=== PATIENT | female | born 1975 | race African-American/Black ===

== ENCOUNTER 2024-04-21 12:43 | Inpatient (IN) | payer MEDICAID, OTHER ==
[~2024-04-21] VITALS: Ht 157.5 cm; Wt 97.2 kg
--- NOTE | 2024-04-21 13:04 | ED.PDOC ---
GI ASSESSMENT HPI Comments 48Y F with PMHx pancreatitis and HTN presents to ED for chief complaint RUQ pain x1day that radiates to rt flank region. Additional symptoms include nausea and vomiting (last episode this morning). Pt has normal bowel movements. Pt denies being . Pt smokes cigarettes and drinks alcohol. Last alcoholic drink was last night. Pt is currently experiencing grief as son on 04/15/2024. Pt denies illicit drug use. Chief Complaint: Abdominal Pain Time Seen by MD: 12:51 Reviewed Notes: Medications, Allergies Allergies: Uncoded Allergies: HCTZ (Allergy, Unknown, 04/21/24) HYDROCHLOROTHYAZIDE Information Source: Patient Mode of Arrival: Ambulatory Timing: Days Duration: Since onset Quality: Sharp Vomitus: Watery Stool: Brown Severity: Mild Recent: None Recent Hx of: None Pain Location: RUQ, Other (rt flank) Modifying Factors: Nothing Associated sign and symptoms: Nausea, Vomiting, Abdominal Pain Past Medical History PAST MEDICAL HISTORY: HTN Past Medical History (Other): Pancreatitis Surgical History: Denies all surgeries FLAME GOUGER History: Denies all FLAME GOUGER Hx Family History Family History: Unknown Social History Smoker: Cigarettes Alcohol: Occasionally Drugs: Denies Drug Use Lives In: Home Constitutional: denies: chills, diaphoresis, fatigue, fever, malaise, sweats, weakness, others EENTM: denies: blurred vision, double vision, ear bleeding, ear discharge, ear drainage, ear pain, ear ringing, eye pain, eye redness, hearing loss, mouth pain, mouth swelling, nasal discharge, nose bleeding, nose congestion, nose pain, photophobia, tearing, throat pain, throat swelling, voice changes, others Respiratory: denies: cough, hemoptysis, orthopnea, SOB at rest, shortness of breath, SOB with excertion, stridor, wheezing, others Cardiovascular: denies: chest pain, dizzy spells, diaphoresis, Dyspnea on exertion, edema, irregular heart beat, left arm pain, lightheadedness, palpitations, PND, syncope, others Gastrointestinal: reports: abdominal pain, nausea, vomiting; denies: abdomen distended, blood streaked bowels, constipated, diarrhea, dysphagia, difficulty swallowing, hematemesis, melena, poor appetite, poor fluid intake, rectal bleeding, rectal pain, others Genitourinary: reports: flank pain; denies: abnormal vagina bleeding, burning, dyspareunia, dysuria, frequency, hematuria, incontinence, pain, , vagina discharge, urgency, others Neurological: denies: dizziness, fainting, headache, left sided numbness, left sided weakness, numbness, paresthesia, pre-existing deficit, right sided numbness, right sided weakness, seizure, speech problems, tingling, tremors, weakness, others Musculoskeletal: denies: back pain, gout, joint pain, joint swelling, muscle pain, muscle stiffness, neck pain, others Integumetry: denies: bruises, change in color, change in hair/nails, dryness, laceration, lesions, lumps, rash, wounds, others Allergic/Immunocompromised: denies: Difficulty Healing, Frequent Infections, Hives, Itching, others Hematologic/Lymphatic: denies: anemia, blood clots, easy bleeding, easy bruising, swollen glands, others Endocrine: denies: excessive hunger, excessive sweating, excessive thirst, excessive urination, flushing, intolerance to cold, intolerance to heat, unexplained weight gain, unexplained weight loss, others Psychiatric: reports: others (grief); denies: anxiety, bipolar disorder, depression, hopeless, panic disorder, schizophrenia, sleepless, suicidal All Other Systems: Reviewed and Negative Physical Exam General Appearance: Mild Distress HEENT: Normal ENT Inspection, Pharynx Normal, TMs Normal Neck: Full Range of Motion, Non-Tender, Normal, Normal Inspection Respiratory: Chest Non-Tender, Lungs Clear, No Accessory Muscle Use, No Respiratory Distress, Normal Breath Sounds Cardiovascular: No Edema, No JVD, No Murmur, No Gallop, Normal Peripheral Pulses, Regular Rate/Rhythm Breast Exam: Deferred Gastrointestinal: No Organomegaly, Non Tender, No Pulsatile Mass, Normal Bowel Sounds, Soft Genitalia: Deferred Pelvic: Deferred Rectal: Deferred Extremities: No calf tenderness, Normal capillary refill, Normal inspection, Normal range of motion, Non-tender, No pedal edema Musculoskeletal : Apperance: Normal Neurologic: Alert, staff development coordinator rn II-XII nml as Tested, No Motor Deficits, Normal Affect, Normal Mood, No Sensory Deficits Cerebellar Function: Normal Reflexes: Normal Skin: Dry, Normal Color, Warm Lymphatic: No Adenopathy Was a procedure done? Was a procedure done?: No GI differential Dx Differential Diagnosis: Complete , Incomplete , Inevitable , Missed , Threatened , Abruptio placentae, Bowel O bstruction, Cholangitis, Cholecystitis, Constipation, Diverticular disease, Ectopic , Gastritis/PUD, Gastroenteritis, Hernia, Hepatitis, Inflammatory BD, Ischemic Bowel, Pancreatitis, Urinary Obstruction, UTI, Urolithiasis, Dehydration, Diabetes/ DKA, Electrolyte Imbalance, Food Poisoning, , Bacterial, Parasitic, Viral, Hypovolemia, Impaction, Malnutrition, Renal Failure, Ischemic Bowel, Mass, Anemia, Stress Ulcer, Kidney Stone X-Ray, Labs, Meds, VS Vital Signs Date Time Temp Pulse Resp B/P (MAP) Pulse Ox O2 Delivery O2 Flow Rate FiO2 04/21/24 15:07 81 19 144/89 04/21/24 14:39 76 17 149/86 04/21/24 14:00 98.1 73 19 131/72 (91) 97 98.1 04/21/24 14:00 73 19 100 Room Air* 0 21 04/21/24 13:39 117/83 04/21/24 12:55 98.5 85 18 138/87 (104) 95 Lab Test 04/21/24 13:40 04/21/24 12:50 Range/Units Sodium Level 141 136-145 mmol/L Potassium Level 3.3 L 3.5-5.1 mmol/L Chloride Level 108 H 98-107 mmol/L Carbon Dioxide Level 26 20-31 mmol/L Anion Gap 7 5-15 Blood Urea Nitrogen 6 L 9-23 mg/dL Creatinine 0.58 0.550-1.02 mg/dL Glomerular Filtration Rate Calc 112 >90 mL/min BUN/Creatinine Ratio 10.3 10.0-20.0 Serum Glucose 95 74-106 mg/dL Calcium Level 9.2 8.7-10.4 mg/dL Total Bilirubin 1.1 H 0.2-1.0 mg/dL Aspartate Amino Transferase (AST) 58 H 13-40 U/L Alanine Aminotransferase (ALT) 56 H 7-40 U/L Alkaline Phosphatase 136 H 46-116 U/L Total Protein 6.4 5.7-8.2 g/dL Albumin 4.1 3.2-4.8 g/dL Lipase 364 H 12-53 U/L Beta HCG, Quantitative < 1.5 L 1.5-4.2 mIU/mL Urine Color Yellow Yellow Urine Clarity Clear Clear Urine pH 6.5 5.0-9.0 Urine Specific [place] 1.014 1.001-1.035 Urine Protein Negative Negative Urine Ketones 2+ H Negative Urine Blood 2+ H Negative /uL Urine Nitrite Negative Negative Urine Bilirubin Negative Negative Urine Urobilinogen 3 H Negative mg/dL Urine Leukocyte Esterase Negative Negative /uL Urine RBC 25 0 - 4 /hpf Urine WBC 1 0 - 5 /hpf Urine Squamous Epithelial Cells Few <5 /hpf Urine Bacteria None seen None Seen /hpf Urine Mucus Few None Seen Urine Glucose Normal Normal mg/dL Current Medications Medications (Trade) Dose Ordered Sig/Jose Route Start Time Stop Time Status Last Admin Fentanyl Citrate 25 mcg ONCE ONCE IV 04/21/24 13:30 04/21/24 13:31 DC 04/21/24 13:39 Morphine Sulfate 2 mg ONCE ONCE IV 04/21/24 14:30 04/21/24 14:31 DC 04/21/24 14:39 Ondansetron HCl (Zofran) 4 mg ONCE ONCE IV 04/21/24 14:30 04/21/24 14:31 DC 04/21/24 14:38 [place] [id number] Ph: [phone] DIAGNOSTIC IMAGING Diagnostic Imaging Report : [id number] Signed PATIENT: KAYLA ROSALES ACCT: [id number] UNIT: [id number] : 1975 LOC: ER ROOM / BED: / AGE / SEX: 48 / F ADM STATUS: REG ER SERVICE 1259 ORDERING PHYSICIAN: LUIS SOL MD PROCEDURE(s): GBUS - GALLBLADDER REASON: ruq pain ORDER NUMBER(s): [id number], ACCESSION NUMBER(s): [id number] INDICATION: Pain. TECHNIQUE: Multiple real-time sonographic images of the abdomen were obtained. COMPARISON: None FINDINGS: The liver is increased in echogenicity. The liver measures 16.2 cm. No intrahepatic biliary ductal dilatation is noted. Hepatopetal flow in the main portal vein. The gallbladder wall measures 0.2 cm and is unremarkable. No gallstones or sludge is seen. The common duct measures 1.2 cm and is unremarkable. No pericholecystic fluid is noted. Negative sonographic castaneda's sign. The right kidney measures 10.9 cm. No hydronephrosis. 0.7 cm nonobstructing stone in the interpolar right kidney. The pancreas is not well visualized due to obscuration from bowel gas. The visualized portions of the IVC and aorta are grossly unremarkable. IMPRESSION: 1. Dilated common bile duct measuring 1.2 cm in diameter without filling defect. Gallbladder is unremarkable. MRCP may be obtained for further evaluation to assess for choledocholithiasis. 2. Nonobstructing right intrarenal calculus. ATED BY: LAURA SPNECE MD DICTATED DATE/TIME: 04/21/24 1345 SIGNED BY: LAURA SPENCE MD SIGNED DATE/TIME: 04/21/24 1345 CC: Time of 1ST Reevaluation: 13:21 Reevaluation 1ST: Unchanged Time of 2ND Reevaluation: 15:31 Reevaluation 2ND: Improved Patient Education/Counseling: Diagnosis, Treatment Family Education/Counseling: Diagnosis, Treatment Additional Information pt has evidence of biliary obstruction with mild pancreatic inflammation. pt may be transferred to [place] for ERCP. however, [facility] does not have beds, and requests to try contacting them tomorrow. pt will be admitted here for now Departure 1 Departure Time of Disposition: 15:31 Impression: Primary Impression: Biliary obstruction Additional Impression: Pancreatitis Qualified Codes: K85.10 - Biliary acute pancreatitis without necrosis or infection Disposition: 09 ADMITTED INPATIENT Condition: Stable Critical Care Note Critical Care Time?: Yes (55 min-critical care time only) Critical care comment: due to real concerns for pt's condition deteriorating, the patient's care required my highest level of attention and prepareness to intervene. i assessed this patient, formulated a plan of care, communicated with medical personnel,reveiwed data and results,and conversed with cruise consultant, reassessed the patient's condition and response to treatments. total time include at least 50% face-face interactions and does not include any procedures Stability Stability form required: No I personally scribed for LUIS SOL MD ([email or web address]) on 04/21/24 at 13:04. Electronically submitted by Racquel Forman ([email or web address]). I personally scribed for LUIS SOL MD ([email or web address]) on 04/21/24 at 14:04. Electronically submitted by Racquel Forman ([email or web address]). LUIS SOL MD Apr 21, 2024 13:04
[2024-04-21 13:13] LABS: Urine Bacteria None Seen /hpf (None Seen)
[2024-04-21] MEDS ORDERED: fentaNYL CITRATE 100 MCG/2 ML VL IM ONE (13:15)
[2024-04-21] MEDS: HYDROcodone-ACET 5/325MG TAB PO ONE (13:17)
[2024-04-21 13:21] LABS: Urine Blood 2+ /uL (Negative); Urine Clarity Clear (Clear); Urine Color Yellow (Yellow); Urine Mucus FEW (None Seen); Urine Protein, UAD Negative (Negative); Urine Specific Gravity 1.014 (1.001-1.035); Urine Urobilinogen 3 mg/dL (Negative); Urine WBC 1 /hpf (0 - 5); Urine pH 6.5 (5.0-9.0)
[2024-04-21] MEDS: fentaNYL CITRATE 100 MCG/2 ML VL IV ONE (13:39)
--- NOTE | 2024-04-21 13:48 | DVH ---
INDICATION: Pain. TECHNIQUE: Multiple real-time sonographic images of the abdomen were obtained. COMPARISON: None FINDINGS: The liver is increased in echogenicity. The liver measures 16.2 cm. No intrahepatic biliar y ductal dilatation is noted. Hepatopetal flow in the main portal vein. The gallbladder wall measures 0.2 cm and is unremarkable. No gallstones or sludge is seen. The com mon duct measures 1.2 cm and is unremarkable. No pericholecystic fluid is noted. Negative sonographi c castaneda's sign. The right kidney measures 10.9 cm. No hydronephrosis. 0.7 cm nonobstructing stone in the interpolar right kidney. The pancreas is not well visualized due to obscuration from bowel gas. The visualized portions of the IVC and aorta are grossly unremarkable. IMPRESSION: 1. Dilated common bile duct measuring 1.2 cm in diameter without filling defect. Gallbladder is unre markable. MRCP may be obtained for further evaluation to assess for choledocholithiasis. 2. Nonobstructing right intrarenal calculus.
[2024-04-21 14:00] VITALS: PULSE 73; RESP 19; O2SAT 100
[2024-04-21 14:27] LABS: Alanine Aminotransferase 56 U/L (7-40); Albumin 4.1 g/dL (3.2-4.8); Alkaline Phosphatase 136 U/L (46-116); Anion Gap 7 (5-15); Aspartate Aminotransferase 58 U/L (13-40); BUN/Creatinine Ratio 10.3 (10.0-20.0); Blood Urea Nitrogen 6 mg/dL (9-23); Calcium 9.2 mg/dL (8.7-10.4); Carbon Dioxide 26 mmol/L (20-31); Chloride 108 mmol/L (98-107); Glucose 95 mg/dL (74-106); Lipase 364 U/L (12-53); Potassium 3.3 mmol/L (3.5-5.1); Sodium 141 mmol/L (136-145)
[2024-04-21 14:28] LABS: Bilirubin, Total 1.1 mg/dL (0.2-1.0); Total Protein 6.4 g/dL (5.7-8.2)
[2024-04-21] MEDS: ONDANSETRON HCL 4 MG/2 ML VIAL IV ONE ×2 (14:38→21:17)
[2024-04-21] MEDS: MORPHINE SULFATE INJ 2 MG/ml SYRG IV ONE (14:39)
[2024-04-21] MEDS: POTASSIUM CHL 20MEQ/100ML 100 ML IV ONE (16:10)
[2024-04-21] MEDS: HYDROmorphone HCL 2 MG/ML VL/or syr IV ONE (17:21)
[2024-04-21 20:01] VITALS: PULSE 81; RESP 16; O2SAT 100
[2024-04-21] MEDS: ONDANSETRON HCL 4 MG/2 ML VIAL ONE (21:16)
[2024-04-21] MEDS: MORPHINE SULFATE 4 MG/ML SYR/VIAL IV ONE (21:18)
--- NOTE | 2024-04-21 21:42 | DVHHP2 ---
Review of Systems Constitutional: No symptom reported Ears, Nose, & Throat: No symptom reported Eyes: No symptom reported Pulmonary/Respiratory: No symptom reported Cardiovascular: No symptom reported Gastrointestinal: No symptom reported Genitourinary: No symptom reported Musculoskeletal: No symptom reported Skin: No symptom reported Psychiatric: No symptom reported Endocrine: No symptom reported Hemotologic/Lymphatic: No symptom reported H&P Exam Vital Signs Vital Signs Date Time Temp Pulse Resp B/P (MAP) Pulse Ox O2 Delivery O2 Flow Rate FiO2 04/21/24 21:18 72 18 126/66 04/21/24 20:01 100 Room Air* 0 21 04/21/24 14:00 98.1 98.1 General Appeara: Well developed, Well nourished, Normal Appearance Head Exam: Normal inspection Neck Exam: Normal inspection, Non-tender, Normal alignment Eye Exam: bilateral eye Normal inspection, bilateral eye PERRL, bilateral eye EOMI Ear Exam: bilateral ear Auricle normal, bilateral ear Canal normal, bilateral ear TM normal Nasal Exam: Normal inspection Mouth: Normal Inspection Pulmonary/Respiratory: Normal inspection, Normal breath sounds, Chest non- tender, Lungs clear Cardiovascular/Chest: Normal inspection, Regular rate, Normal Rhythm Abdominal Exam: Normal bowel sounds, Soft, No tenderness, No hepatospenomegaly, No masses Rectal Exam: Normal inspection Back Exam: Normal inspection Pelvic Exam: External exam normal, Bimanual exam normal, Speculum exam normal Male Genital Exam: Normal genitalia, Normal prostate Shoulder Exam: Normal inspection, Non-tender, Normal ROM Elbow/Forearm Exam: Normal inspection, Non-tender, Normal ROM Wrist Exam: Normal inspection, Non-tender, Normal ROM Hand Exam: Normal inspection, Non-tender, Normal ROM Hip exam: Normal inspection, Non-tender, Normal range of motion Legs: bilateral leg non-tender, bilateral leg normal inspection, bilateral leg normal range of motion, bilateral leg no evidence of injury Knees: bilateral knee non-tender, bilateral knee normal inspection, bilateral knee normal range of motion, bilateral knee no evidence of injury Ankle Exam: bilateral ankle Normal inspection, bilateral ankle Non-tender, bilateral ankle Normal range of motion, bilateral ankle No evidence of injury Foot: bilateral foot non-tender, bilateral foot normal inspection, bilateral foot normal range of motion, bilateral foot no evidence of injury Tendon/ Neuro: Normal sensation, Normal motor function, Normal tendon functions RECREATION THERAPY DIRECTOR Exam: Normal hearing, Normal speech, PERRL Motor/Sensory: Normal sensory function, Normal motor function, Negative Babinski's sign Deep Tendon Ref: All intact Neuro/Mental St: Alert, Oriented Appearance: Appropriate appearance, Appropriate insight Eye contact/ Speech: Cooperative, Good eye contact, Normal speech Coordination/Gait: Normal finger->nose, Normal gait, Negative Romberg's sign Skin Exam: Normal inspection, Normal color, Warm/dry Lymphatic: Normal inspection Labs/Xrays Labs Test 04/21/24 13:40 04/21/24 12:50 Range/Units Sodium Level 141 136-145 mmol/L Potassium Level 3.3 L 3.5-5.1 mmol/L Chloride Level 108 H 98-107 mmol/L Carbon Dioxide Level 26 20-31 mmol/L Anion Gap 7 5-15 Blood Urea Nitrogen 6 L 9-23 mg/dL Creatinine 0.58 0.550-1.02 mg/dL Glomerular Filtration Rate Calc 112 >90 mL/min BUN/Creatinine Ratio 10.3 10.0-20.0 Serum Glucose 95 74-106 mg/dL Calcium Level 9.2 8.7-10.4 mg/dL Total Bilirubin 1.1 H 0.2-1.0 mg/dL Aspartate Amino Transferase (AST) 58 H 13-40 U/L Alanine Aminotransferase (ALT) 56 H 7-40 U/L Alkaline Phosphatase 136 H 46-116 U/L Total Protein 6.4 5.7-8.2 g/dL Albumin 4.1 3.2-4.8 g/dL Lipase 364 H 12-53 U/L Beta HCG, Quantitative < 1.5 L 1.5-4.2 mIU/mL Urine Color Yellow Yellow Urine Clarity Clear Clear Urine pH 6.5 5.0-9.0 Urine Specific [place] 1.014 1.001-1.035 Urine Protein Negative Negative Urine Ketones 2+ H Negative Urine Blood 2+ H Negative /uL Urine Nitrite Negative Negative Urine Bilirubin Negative Negative Urine Urobilinogen 3 H Negative mg/dL Urine Leukocyte Esterase Negative Negative /uL Urine RBC 25 0 - 4 /hpf Urine WBC 1 0 - 5 /hpf Urine Squamous Epithelial Cells Few <5 /hpf Urine Bacteria None seen None Seen /hpf Urine Mucus Few None Seen Urine Glucose Normal Normal mg/dL Assessment/Plan Problem List: (1) Pancreatitis (2) Biliary obstruction Plan 48 years old female comes into the hospital with complaint of right upper quadrant abdominal pain, during initial evaluation patient found to have increased lipase, increased transaminitis, patient is going to be admitted to hospital for acute pancreatitis, will keep patient n.p.o., IV fluids, IV normal saline, patient found to be hypokalemic patient's potassium will be replaced, also patient had finding of nonobstructive kidney stone Plan discussed with: Patient KURT CONTRERAS MD Apr 21, 2024 21:42
[2024-04-21] MEDS ORDERED: NITROGLYCERIN 0.4 MG SL TAB SL PRN (21:45)
[2024-04-21] MEDS ORDERED: ONDANSETRON HCL 4 MG/2 ML VIAL IV PRN (21:45)
[2024-04-21] MEDS ORDERED: MORPHINE SULFATE INJ 2 MG/ml SYRG IV PRN ×2 (21:45)
[2024-04-21] MEDS: SODIUM CHLORIDE 0.9% 1,000 ML IV SCH (21:45)
[2024-04-21] MEDS: POTASSIUM CHL 20MEQ/100ML 100 ML IV SCH (21:45)
[2024-04-22] VITALS (7 sets, daily range): BP systolic 108–145; BP diastolic 64–84; PULSE 60–84; RESP 16–20; TEMP 97.6–98.5; O2SAT 97–100
[2024-04-22 00:09] LABS: Eosinophils # (auto) 0.1 10 ^3/uL (0-0.8); Mean Corpuscular Volume 75.4 fL (80.0-100.0); Monocytes # (auto) 0.5 10 ^3/uL (0-1.3); Monocytes % (auto) 5.8 % (0.0-12.0); Nucleated Red Blood Cells % 0.1 %; White Blood Cell 7.8 10^3/uL (4.4-10.8)
[2024-04-22 00:10] LABS: Basophils # (auto) 0 10 ^3/uL (0-0.2); Basophils % (auto) 0.6 % (0.0-2.0); Eosinophils % (auto) 1.3 % (0.0-7.0); Hematocrit 32.7 % (36.0-46.0); Hemoglobin 10.3 g/dL (12.2-16.2); Lymphocytes # (auto) 1.3 10 ^3/uL (0.4-5.4); Lymphocytes % (auto) 16.5 % (10.0-50.0); Mean Corpuscular Hemoglobin 23.8 pg (28.0-32.0); Mean Corpuscular Hgb Conc. 31.5 g/dL (32.0-36.0); Neutrophils # (auto) 5.9 10 ^3/uL (1.6-8.6); Neutrophils % (auto) 75.8 % (37.0-80.0); Platelet Count (auto) 340 10^3/uL (140-450); Red Blood Cells 4.34 10^6/uL (4.0-5.20); Red Cell Distribution Width 19.1 % (11.8-14.3)
[2024-04-22 03:52] LABS: Basophils # (auto) 0 10 ^3/uL (0-0.2); Basophils % (auto) 0.3 % (0.0-2.0); Eosinophils # (auto) 0.1 10 ^3/uL (0-0.8); Lymphocytes # (auto) 1.1 10 ^3/uL (0.4-5.4); Monocytes # (auto) 0.6 10 ^3/uL (0-1.3)
[2024-04-22 03:56] LABS: Eosinophils % (auto) 1.4 % (0.0-7.0); Hematocrit 33.6 % (36.0-46.0); Hemoglobin 10.6 g/dL (12.2-16.2); Lymphocytes % (auto) 12.6 % (10.0-50.0); Mean Corpuscular Hgb Conc. 31.6 g/dL (32.0-36.0); Mean Corpuscular Volume 76.1 fL (80.0-100.0); Monocytes % (auto) 6.7 % (0.0-12.0); Neutrophils # (auto) 6.8 10 ^3/uL (1.6-8.6); Nucleated Red Blood Cells % 0.1 %; Platelet Count (auto) 316 10^3/uL (140-450); Red Blood Cells 4.42 10^6/uL (4.0-5.20); Red Cell Distribution Width 19.2 % (11.8-14.3); White Blood Cell 8.6 10^3/uL (4.4-10.8)
[2024-04-22 04:12] LABS: Alanine Aminotransferase 48 U/L (7-40); Albumin 4.2 g/dL (3.2-4.8); Alkaline Phosphatase 130 U/L (46-116); Anion Gap 6 (5-15); Aspartate Aminotransferase 39 U/L (13-40); Bilirubin, Total 1.1 mg/dL (0.2-1.0); Calcium 9.2 mg/dL (8.7-10.4); Carbon Dioxide 25 mmol/L (20-31); Chloride 109 mmol/L (98-107); Glucose 91 mg/dL (74-106); Potassium 3.4 mmol/L (3.5-5.1); Sodium 140 mmol/L (136-145); Total Protein 6.8 g/dL (5.7-8.2)
[2024-04-22] MEDS: MORPHINE SULFATE INJ 2 MG/ml SYRG IV PRN (04:20)
[2024-04-22] MEDS: SODIUM CHLORIDE 0.9% 1,000 ML IV SCH (04:20)
[2024-04-22] MEDS: ONDANSETRON HCL 4 MG/2 ML VIAL IV PRN (04:20)
[2024-04-22 04:27] LABS: BUN/Creatinine Ratio 9.1 (10.0-20.0); Blood Urea Nitrogen < 5 mg/dL (9-23)
--- NOTE | 2024-04-22 06:28 | DVHHP2 ---
History of Present Illness Reason for Visit: Abdominal pain History of Present Illness 48-year-old female presents for evaluation of abdominal pain. Patient endorses a two day history of sharp right upper quadrant abdominal pain that radiates to her back. She associates episodes of nausea with vomiting. Denies diarrhea, fever or chills. No cardiac or respiratory complaints. Past Medical History Hypertension , pancreatitis Past Surgical History Denies Family History Noncontributory Smoke: <1 pack per day ALCOHOL: occassional Drugs: None Lives: with Family Review of Systems Review of Systems Review of systems are currently negative otherwise addressed in HPI. Allergies: Uncoded Allergies: HCTZ (Allergy, Unknown, 04/21/24) HYDROCHLOROTHYAZIDE Medications Current Medications Medications Dose Ordered Sig/Jose Route Start Time Stop Time Status Last Admin Dose Admin Sodium Chloride 1,000 ml @ 100 mls/hr Q10H IV 04/22/24 04:15 04/22/24 04:20 100 MLS/HR Ondansetron HCl 4 mg Q4HP PRN IV 04/22/24 04:15 04/22/24 04:20 4 MG Morphine Sulfate 2 mg Q4HPRN PRN IV 04/22/24 04:15 04/22/24 04:20 2 MG Exam Vital Signs Vital Signs Date Time Temp Pulse Resp B/P (MAP) Pulse Ox O2 Delivery O2 Flow Rate FiO2 04/22/24 04:59 60 16 137/68 04/22/24 04:00 98 04/21/24 20:01 Room Air* 0 21 04/21/24 14:00 98.1 98.1 Exam Gen: 48-year-old female in mild distress Skin: Warm, dry, normal color and texture, no rash. HEENT: Normocephalic atraumatic, mucous membranes moist and pink. Neck: Cervical and supraclavicular nodes normal without enlargement, trachea is midline, thyroid gland is normal without masses. Pulmonary: Clear to auscultation and percussion bilaterally. Cardiac: Regular rate and rhythm. No murmur Abdomen: Soft, right upper quadrant tenderness, nondistended, bowel sounds present all 4 quadrants, no guarding, no rigidity, no organomegaly. Extremities: No cyanosis, clubbing, no edema Neuro: Cranial nerves II through XII grossly intact, normal affect and speech, no focal motor deficits. Labs/Xrays ORDERING PHYSICIAN: LUIS SOL MD PROCEDURE(s): GBUS - GALLBLADDER REASON: ruq pain ORDER NUMBER(s): [id number], ACCESSION NUMBER(s): [id number] INDICATION: Pain. TECHNIQUE: Multiple real-time sonographic images of the abdomen were obtained. COMPARISON: None FINDINGS: The liver is increased in echogenicity. The liver measures 16.2 cm. No intrahepatic biliary ductal dilatation is noted. Hepatopetal flow in the main portal vein. The gallbladder wall measures 0.2 cm and is unremarkable. No gallstones or sludge is seen. The common duct measures 1.2 cm and is unremarkable. No pericholecystic fluid is noted. Negative sonographic castaneda's sign. The right kidney measures 10.9 cm. No hydronephrosis. 0.7 cm nonobstructing stone in the interpolar right kidney. The pancreas is not well visualized due to obscuration from bowel gas. The visualized portions of the IVC and aorta are grossly unremarkable. IMPRESSION: 1. Dilated common bile duct measuring 1.2 cm in diameter without filling defect. Gallbladder is unremarkable. MRCP may be obtained for further evaluation to assess for choledocholithiasis. 2. Nonobstructing right intrarenal calculus. Labs Test 04/22/24 03:44 04/21/24 13:40 04/21/24 12:50 Range/Units White Blood Count 8.6 4.4-10.8 10^3/uL Red Blood Count 4.42 4.0-5.20 10^6/uL Hemoglobin 10.6 L 12.2-16.2 g/dL Hematocrit 33.6 L 36.0-46.0 % Mean Corpuscular Volume 76.1 L 80.0-100.0 fL Mean Corpuscular Hemoglobin 24.0 L 28.0-32.0 pg Mean Corpuscular Hemoglobin Concent 31.6 L 32.0-36.0 g/dL Red Cell Distribution Width 19.2 H 11.8-14.3 % Platelet Count 316 140-450 10^3/uL Mean Platelet Volume 6.7 L 6.9-10.8 fL Neutrophils (%) (Auto) 79.0 37.0-80.0 % Lymphocytes (%) (Auto) 12.6 10.0-50.0 % Monocytes (%) (Auto) 6.7 0.0-12.0 % Eosinophils (%) (Auto) 1.4 0.0-7.0 % Basophils (%) (Auto) 0.3 0.0-2.0 % Neutrophils # (Auto) 6.8 1.6-8.6 10 ^3/uL Lymphocytes # (Auto) 1.1 0.4-5.4 10 ^3/uL Monocytes # (Auto) 0.6 0-1.3 10 ^3/uL Eosinophils # (Auto) 0.1 0-0.8 10 ^3/uL Basophils # (Auto) 0 0-0.2 10 ^3/uL Nucleated Red Blood Cells 0.1 % Sodium Level 140 136-145 mmol/L Potassium Level 3.4 L 3.5-5.1 mmol/L Chloride Level 109 H 98-107 mmol/L Carbon Dioxide Level 25 20-31 mmol/L Anion Gap 6 5-15 Blood Urea Nitrogen < 5 L 9-23 mg/dL Creatinine 0.55 0.550-1.02 mg/dL Glomerular Filtration Rate Calc 114 >90 mL/min BUN/Creatinine Ratio 9.1 L 10.0-20.0 Serum Glucose 91 74-106 mg/dL Calcium Level 9.2 8.7-10.4 mg/dL Total Bilirubin 1.1 H 0.2-1.0 mg/dL Aspartate Amino Transferase (AST) 39 13-40 U/L Alanine Aminotransferase (ALT) 48 H 7-40 U/L Alkaline Phosphatase 130 H 46-116 U/L Total Protein 6.8 5.7-8.2 g/dL Albumin 4.2 3.2-4.8 g/dL Lipase 161 H 12-53 U/L Beta HCG, Quantitative < 1.5 L 1.5-4.2 mIU/mL Urine Color Yellow Yellow Urine Clarity Clear Clear Urine pH 6.5 5.0-9.0 Urine Specific [place] 1.014 1.001-1.035 Urine Protein Negative Negative Urine Ketones 2+ H Negative Urine Blood 2+ H Negative /uL Urine Nitrite Negative Negative Urine Bilirubin Negative Negative Urine Urobilinogen 3 H Negative mg/dL Urine Leukocyte Esterase Negative Negative /uL Urine RBC 25 0 - 4 /hpf Urine WBC 1 0 - 5 /hpf Urine Squamous Epithelial Cells Few <5 /hpf Urine Bacteria None seen None Seen /hpf Urine Mucus Few None Seen Urine Glucose Normal Normal mg/dL Assessment/Plan Assessment/Plan Assessment Acute abdominal pain Rule biliary obstruction Pancreatitis Transaminitis Plan Admit the patient to [facility] to the hospitalist Per sharmila Pat to admit patient and Dr. Bach will manage transfer to [facility] NPO MRCP pending Continue treatment per orders. Plan discussed with: Patient My Orders Orders - ASHLEY NETTLES Procedure Category Date Status Time Sodium Chloride 0.9% PHA 04/22/24 In Process 04:15 Mrcp Mri MRI 04/22/24 Logged 04:05 Admit ADMIT 04/22/24 Transmitted 04:05 Ondansetron Hcl PHA 04/22/24 In Process (Zofran) 04:15 Npo (Nothing By DIET 04/22/24 Transmitted Mouth) Diet Breakfast Condition: Stable FRANCIS 04/22/24 In Process 04:05 Bedrest With Bathroom FRANCIS 04/22/24 In Process Privileg 04:05 Morphine Sulfate PHA 04/22/24 In Process Injection 04:15 Admit ADMIT 04/22/24 Transmitted 04:05 Date of Service: Apr 22, 2024 Billing Provider: ASHLEY NETTLES Common Visit Codes: [id number] INP/OBS CARE (MOD) ASHLEY NETTLES Apr 22, 2024 06:28
[2024-04-22] MEDS ORDERED: AMLO1TAB22 PO (07:03)
[2024-04-22] MEDS ORDERED: PANT40T PO (07:03)
--- NOTE | 2024-04-22 09:24 | DVH ---
MRCP WITHOUT CONTRAST CLINICAL HISTORY: Rule out biliary obstruction 48 years old, Female; Rule out biliary obstruction.. TECHNIQUE: Multiplanar, multisequence MRCP and MR images of the abdomen without contrast. Comparison: Right upper quadrant abdominal ultrasound 04/21/2024 FINDINGS: The gallbladder appears within normal limits without evidence of cholelithiasis. There is no signific ant intrahepatic biliary ductal dilatation. Common duct is dilated measuring 1.3 cm in diameter. The re is smooth tapering of the distal common duct at the ampulla. There is no biliary intraluminal fill ing defect. There is no obvious biliary stricture. There is no pancreatic ductal dilatation. There are few small renal cysts . There is no hydronephrosis. The liver, spleen, pancreas, adrenal glands and gallbladder appear normal. There is no free fluid or free air. The visualized small and la rge bowel loops demonstrate normal caliber. The visualized lung bases are clear. The soft tissues an d osseous structures appear within normal limits. IMPRESSION: 1. The common duct is dilated measuring 1.3 cm in diameter. There is smooth tapering of the distal co mmon duct at the ampulla. There is no evidence of cholelithiasis or choledocholithiasis. Is no obviou s biliary stricture.. HS:Y
--- NOTE | 2024-04-22 11:45 | DVHINCON2 ---
GI Consult Consult Note GI consult note Date of Consultation: 04/22/2024 Chief Complaint: Pancreatitis Referring Physician: Dr. Toro H&P: 48-year-old female admitted with epigastric and right upper quadrant pain started three days ago, and getting worse Patient has nausea and vomit, no hematemesis Bowel movement three days ago, no melena or red blood in stool. Patient admits to history of constipation Patient has history of GERD Patient had similar symptoms six months ago, diagnosed with pancreatitis, status post EGD. Unsure of results Patient admits to drinking alcohol for past week, after her son about a week ago Past Medical History: HTN, pancreatitis Past Surgical History: Denies Social History: NO smoking, drinking ETOH and use of illegal drugs. Family History: Noncontributory Review of Systems: Constitutional: no fever, chill, weight loss HEENT: no eye pain, no hearing loss, no oral lesion, no scleral icterus Heart: no chest pain, no chest pressure Lung: no cough, no dyspnea with exertion Abdomen: see HPI : no pain with urination, normal appearing urine Physical exam: General: NAD, AAOX3 Chest: lung cox clear to auscultation Heart: RRR, no murmur Abdomen: non-distended, moderate RUQ and epigastric tenderness to palpation, +BS Labs: Labs Test 04/22/24 03:44 04/21/24 13:40 04/21/24 12:50 Range/Units White Blood Count 8.6 4.4-10.8 10^3/uL Red Blood Count 4.42 4.0-5.20 10^6/uL Hemoglobin 10.6 L 12.2-16.2 g/dL Hematocrit 33.6 L 36.0-46.0 % Mean Corpuscular Volume 76.1 L 80.0-100.0 fL Mean Corpuscular Hemoglobin 24.0 L 28.0-32.0 pg Mean Corpuscular Hemoglobin Concent 31.6 L 32.0-36.0 g/dL Red Cell Distribution Width 19.2 H 11.8-14.3 % Platelet Count 316 140-450 10^3/uL Mean Platelet Volume 6.7 L 6.9-10.8 fL Neutrophils (%) (Auto) 79.0 37.0-80.0 % Lymphocytes (%) (Auto) 12.6 10.0-50.0 % Monocytes (%) (Auto) 6.7 0.0-12.0 % Eosinophils (%) (Auto) 1.4 0.0-7.0 % Basophils (%) (Auto) 0.3 0.0-2.0 % Neutrophils # (Auto) 6.8 1.6-8.6 10 ^3/uL Lymphocytes # (Auto) 1.1 0.4-5.4 10 ^3/uL Monocytes # (Auto) 0.6 0-1.3 10 ^3/uL Eosinophils # (Auto) 0.1 0-0.8 10 ^3/uL Basophils # (Auto) 0 0-0.2 10 ^3/uL Nucleated Red Blood Cells 0.1 % Sodium Level 140 136-145 mmol/L Potassium Level 3.4 L 3.5-5.1 mmol/L Chloride Level 109 H 98-107 mmol/L Carbon Dioxide Level 25 20-31 mmol/L Anion Gap 6 5-15 Blood Urea Nitrogen < 5 L 9-23 mg/dL Creatinine 0.55 0.550-1.02 mg/dL Glomerular Filtration Rate Calc 114 >90 mL/min BUN/Creatinine Ratio 9.1 L 10.0-20.0 Serum Glucose 91 74-106 mg/dL Calcium Level 9.2 8.7-10.4 mg/dL Total Bilirubin 1.1 H 0.2-1.0 mg/dL Aspartate Amino Transferase (AST) 39 13-40 U/L Alanine Aminotransferase (ALT) 48 H 7-40 U/L Alkaline Phosphatase 130 H 46-116 U/L Total Protein 6.8 5.7-8.2 g/dL Albumin 4.2 3.2-4.8 g/dL Lipase 161 H 12-53 U/L Beta HCG, Quantitative < 1.5 L 1.5-4.2 mIU/mL Urine Color Yellow Yellow Urine Clarity Clear Clear Urine pH 6.5 5.0-9.0 Urine Specific [place] 1.014 1.001-1.035 Urine Protein Negative Negative Urine Ketones 2+ H Negative Urine Blood 2+ H Negative /uL Urine Nitrite Negative Negative Urine Bilirubin Negative Negative Urine Urobilinogen 3 H Negative mg/dL Urine Leukocyte Esterase Negative Negative /uL Urine RBC 25 0 - 4 /hpf Urine WBC 1 0 - 5 /hpf Urine Squamous Epithelial Cells Few <5 /hpf Urine Bacteria None seen None Seen /hpf Urine Mucus Few None Seen Urine Glucose Normal Normal mg/dL Imaging: Gallbladder ultrasound IMPRESSION: 1. Dilated common bile duct measuring 1.2 cm in diameter without filling defect. Gallbladder is unremarkable. MRCP may be obtained for further evaluation to assess for choledocholithiasis. 2. Nonobstructing right intrarenal calculus. MRCP IMPRESSION: 1. The common duct is dilated measuring 1.3 cm in diameter. There is smooth tapering of the distal common duct at the ampulla. There is no evidence of cholelithiasis or choledocholithiasis. Is no obvious biliary stricture.. Assessment: Abdominal pain Pancreatitis Elevated LFT History of alcohol use Plan: Discussed with Dr. Molina Monitor labs Pain management ice chips, advance to clear liquid if tolerating Discussed plan with patient, , daughter at bedside and RN Thank you for this consult Date of Service: Apr 22, 2024 Billing Provider: BENJAMIN LERMA Common Visit Codes: CONSULT ONLY Consultation Codes: [id number] CONSULT <45MIN BENJAMIN LERMA Apr 22, 2024 11:45
[2024-04-22] MEDS: HYDROcodone-ACET 10/325MG TAB PO ONE (12:06)
--- NOTE | 2024-04-22 15:55 | DVHPN2 ---
Subjective 48-year-old female admitted to medicine with pancreatitis. Also found to have a dilated CBD, MRCP with no choledocholithiasis. Seen by GI. Patient is seen by me today during rounds Start escalating diet, pain management Reviewed: Care Plan, H&P, Labs, Medications, Previous Orders, Radiology Changes from previous H/P or p: No Changes Objective Vitals Vital Signs Date Time Temp Pulse Resp B/P (MAP) Pulse Ox O2 Delivery O2 Flow Rate FiO2 04/22/24 12:56 68 18 122/65 04/22/24 12:00 97.6 100 97.6 04/22/24 08:00 Room Air* 0 21 Medications Current Medications Medications Dose Ordered Sig/Jose Route Start Time Stop Time Status Last Admin Dose Admin Sodium Chloride 1,000 ml @ 100 mls/hr Q10H IV 04/22/24 04:15 04/22/24 04:20 100 MLS/HR Ondansetron HCl 4 mg Q4HP PRN IV 04/22/24 04:15 04/22/24 12:25 4 MG Morphine Sulfate 2 mg Q4HPRN PRN IV 04/22/24 04:15 04/22/24 12:26 2 MG Laboratory Results Laboratory Tests 04/22/24 03:44 Chemistry Test 04/22/24 03:44 Albumin 4.2 g/dL (3.2-4.8) Calcium Level 9.2 mg/dL (8.7-10.4) Total Protein 6.8 g/dL (5.7-8.2) Lipid panel Test 04/22/24 03:44 Lipase 161 U/L (12-53) H LFT Test 04/22/24 03:44 Alanine Aminotransferase (ALT) 48 U/L (7-40) H Alkaline Phosphatase 130 U/L (46-116) H Aspartate Amino Transferase (AST) 39 U/L (13-40) Total Bilirubin 1.1 mg/dL (0.2-1.0) H Urinalysis Test 04/21/24 12:50 Urine Color Yellow (Yellow) Urine Clarity Clear (Clear) Urine pH 6.5 (5.0-9.0) Urine Specific [place] 1.014 (1.001-1.035) Urine Protein Negative (Negative) Urine Ketones 2+ (Negative) H Urine Blood 2+ /uL (Negative) H Urine Nitrite Negative (Negative) Urine Bilirubin Negative (Negative) Urine Urobilinogen 3 mg/dL (Negative) H Urine Leukocyte Esterase Negative /uL (Negative) Urine RBC 25 /hpf (0 - 4) Urine WBC 1 /hpf (0 - 5) Urine Squamous Epithelial Cells Few /hpf (<5) Urine Bacteria None seen /hpf (None Seen) Urine Mucus Few (None Seen) Urine Glucose Normal mg/dL (Normal) Assessment/Plan Assessment/Plan Acute Pancreatitis Transaminitis Prior alcohol use Dilated CBD without choledocholithiasis Microcytic anemia hypokalemia Continue with hydration Pain management Advance diet as tolerated GI consult appreciated MRCP reviewed Beta electrolytes Send iron study Diet clear liquid DVT prophylaxis ambulatory Plan discussed with: Patient Date of Service: Apr 22, 2024 Billing Provider: JERICHO LYMAN MD Common Visit Codes: [id number] INP/OBS CARE(HIGH) JERICHO LYMAN MD Apr 22, 2024 15:55
[2024-04-23 01:00] VITALS: BP 128/77; PULSE 64; RESP 18; TEMP 98.5; O2SAT 99
[2024-04-23 04:54] VITALS: BP 139/73; PULSE 65; RESP 18; TEMP 98.4; O2SAT 99
[2024-04-23 07:39] LABS: Chloride 107 mmol/L (98-107); Potassium 3.4 mmol/L (3.5-5.1); Sodium 140 mmol/L (136-145)
[2024-04-23 07:40] LABS: Anion Gap 8 (5-15); Calcium 9.4 mg/dL (8.7-10.4); Carbon Dioxide 25 mmol/L (20-31)
[2024-04-23 07:45] LABS: BUN/Creatinine Ratio 10.5 (10.0-20.0); Blood Urea Nitrogen 6 mg/dL (9-23); Glucose 87 mg/dL (74-106)
[2024-04-23 07:46] LABS: % Iron Saturation 8.7 % (15-50)
[2024-04-23 07:48] LABS: Basophils # (auto) 0 10 ^3/uL (0-0.2); Basophils % (auto) 0.3 % (0.0-2.0); Eosinophils # (auto) 0.2 10 ^3/uL (0-0.8); Eosinophils % (auto) 2.2 % (0.0-7.0); Hematocrit 33.4 % (36.0-46.0); Hemoglobin 10.6 g/dL (12.2-16.2); Lymphocytes # (auto) 1.5 10 ^3/uL (0.4-5.4); Lymphocytes % (auto) 20.3 % (10.0-50.0); Mean Corpuscular Hemoglobin 24.2 pg (28.0-32.0); Mean Corpuscular Hgb Conc. 31.7 g/dL (32.0-36.0); Mean Corpuscular Volume 76.1 fL (80.0-100.0); Monocytes # (auto) 0.5 10 ^3/uL (0-1.3); Monocytes % (auto) 7.2 % (0.0-12.0); Neutrophils # (auto) 5.3 10 ^3/uL (1.6-8.6); Platelet Count (auto) 362 10^3/uL (140-450); Red Blood Cells 4.39 10^6/uL (4.0-5.20); Red Cell Distribution Width 18.8 % (11.8-14.3); White Blood Cell 7.5 10^3/uL (4.4-10.8)
[2024-04-23 08:00] VITALS: PULSE 80; RESP 20; O2SAT 99
[2024-04-23] MEDS: POTASSIUM EFFERVESENT TAB 25 MEQ PO ONE (09:17)
[2024-04-23] MEDS: oxyCODONE ER 10 MG TAB PO SCH (11:15)
[2024-04-23] MEDS ORDERED: HYDROcodone-ACET 5/325MG TAB PO PRN (11:15)
[2024-04-23 13:00] VITALS: BP 130/74; PULSE 62; RESP 20; TEMP 98.2; O2SAT 95
--- NOTE | 2024-04-23 15:27 | DVHPN2 ---
Subjective 48-year-old female admitted to medicine with pancreatitis. Also found to have a dilated CBD, MRCP with no choledocholithiasis. Seen by GI. Patient is seen by me today during rounds Slight improvement in pain, so unable to tolerate oral, advance diet as tolerated, pain management, IV hydration. Discussed with patient regarding her cycle, P showed reported heavy flow soaking up to 6 pads 3-5 days. Reviewed: Care Plan, H&P, Labs, Medications, Previous Orders, Radiology Changes from previous H/P or p: No Changes Objective Vitals Vital Signs Date Time Temp Pulse Resp B/P (MAP) Pulse Ox O2 Delivery O2 Flow Rate FiO2 04/23/24 13:00 98.2 62 20 130/74 (92) 95 98.2 04/23/24 08:00 Room Air* 0 21 Intake/Output Intake and Output 04/23/24 07:00 Intake Total 1150 ml Balance 1150 ml Intake Oral 150 ml IV Total 1000 ml # Voids 5 Exam Alert, oriented x3 PERRLA No JVD Clear breath sounds bilaterally S1-S2 regular rate and rhythm no murmur Abdomen tender, no guarding Equal strength bilaterally on upper and lower extremities No lower extremity edema Medications Current Medications Medications Dose Ordered Sig/Jose Route Start Time Stop Time Status Last Admin Dose Admin Sodium Chloride 1,000 ml @ 100 mls/hr Q10H IV 04/22/24 04:15 04/23/24 02:46 100 MLS/HR Ondansetron HCl 4 mg Q4HP PRN IV 04/22/24 04:15 04/23/24 12:13 4 MG Morphine Sulfate 2 mg Q4HPRN PRN IV 04/22/24 04:15 04/23/24 12:14 2 MG Oxycodone HCl 10 mg Q12HR PO 04/23/24 10:00 04/23/24 11:15 10 MG Acetaminophen/ Hydrocodone Bitart 1 tab Q12HP PRN PO 04/23/24 11:15 UNV Laboratory Results Laboratory Tests 04/23/24 06:53 Chemistry Test 04/23/24 06:53 Calcium Level 9.4 mg/dL (8.7-10.4) Urinalysis Test 04/21/24 12:50 Urine Color Yellow (Yellow) Urine Clarity Clear (Clear) Urine pH 6.5 (5.0-9.0) Urine Specific [place] 1.014 (1.001-1.035) Urine Protein Negative (Negative) Urine Ketones 2+ (Negative) H Urine Blood 2+ /uL (Negative) H Urine Nitrite Negative (Negative) Urine Bilirubin Negative (Negative) Urine Urobilinogen 3 mg/dL (Negative) H Urine Leukocyte Esterase Negative /uL (Negative) Urine RBC 25 /hpf (0 - 4) Urine WBC 1 /hpf (0 - 5) Urine Squamous Epithelial Cells Few /hpf (<5) Urine Bacteria None seen /hpf (None Seen) Urine Mucus Few (None Seen) Urine Glucose Normal mg/dL (Normal) Labs and/or images reviewed: Labs reviewed by me, Image(s) reviewed by me Assessment/Plan Assessment/Plan Acute Pancreatitis Transaminitis Prior alcohol use Dilated CBD without choledocholithiasis Iron-deficiency anemia likely from heavy periods hypokalemia Continue with hydration Pain management Advance diet as tolerated GI consult appreciated MRCP reviewed Beta electrolytes We will discharge with iron supplement Diet clear liquid DVT prophylaxis ambulatory Plan discussed with: Patient My Orders Orders - JERICHO LYMAN MD Procedure Category Date Status Time Oxycodone Er Tablet PHA 04/23/24 In Process (Oxycontin Er Tablet 10:00 Mechanical Soft Diet DIET 04/23/24 Transmitted Lunch Date of Service: Apr 23, 2024 Billing Provider: JERICHO LYMAN MD Common Visit Codes: [id number] INP/OBS CARE(HIGH) JERICHO LYMAN MD Apr 23, 2024 15:27
--- NOTE | 2024-04-23 19:18 | DVHPN2 ---
Progress Note - Dictate Date Seen: Apr 23, 2024 Medical Necessity Reason Pt with a Central, PICC or Fol: No Subjective Patient seen at bedside resting comfortably Lipase level and liver enzymes are trending down Slight improvement in pain Patient has heavy menstrual cycles vital signs Vital Sign Date Time Temp Pulse Resp B/P (MAP) Pulse Ox O2 Delivery O2 Flow Rate FiO2 04/23/24 17:54 68 16 122/64 04/23/24 13:00 98.2 95 98.2 04/23/24 08:00 Room Air* 0 21 Total Intake and Output 04/22/24 04/22/24 04/23/24 15:00 23:00 07:00 Intake Total 0 ml 1150 ml Balance 0 ml 1150 ml medications Current Medications Medications Dose Ordered Sig/Jose Route Start Time Stop Time Status Last Admin Dose Admin Sodium Chloride 1,000 ml @ 100 mls/hr Q10H IV 04/22/24 04:15 04/23/24 02:46 100 MLS/HR Ondansetron HCl 4 mg Q4HP PRN IV 04/22/24 04:15 04/23/24 17:23 4 MG Morphine Sulfate 2 mg Q4HPRN PRN IV 04/22/24 04:15 04/23/24 17:24 2 MG Oxycodone HCl 10 mg Q12HR PO 04/23/24 10:00 04/23/24 11:15 10 MG Acetaminophen/ Hydrocodone Bitart 1 tab Q12HP PRN PO 04/23/24 11:15 UNV objective Alert, oriented x3 PERRLA No JVD Clear breath sounds bilaterally S1-S2 regular rate and rhythm no murmur Abdomen tender, no guarding;obese Equal strength bilaterally on upper and lower extremities No lower extremity edema laboratory and microbiology Laboratory Tests 04/23/24 06:53 Test 04/23/24 06:53 Range/Units Serum Glucose 87 74-106 mg/dL Problems(with codes): (1) Elevated liver enzymes (2) Pancreatitis Prognosis Plan IV fluid hydration, pain management Advance diet as tolerated; monitor labs Patient counseled about discontinuing smoking and alcohol There does not appear to be any gallstones Likely EtOH and smoking related pancreatitis with differential diagnosis of sphincter of Oddi dysfunction Outpatient follow up with GI Services for ongoing observation and management Outpatient follow up with case reviewer for metromenorrhagia Plan discussed with: Patient GLENNA MEJÍA MD 5, 2024 19:18
[2024-04-23 20:00] VITALS: PULSE 75; RESP 19; O2SAT 94
[2024-04-23 22:00] VITALS: BP 133/71; PULSE 75; RESP 19; TEMP 98; O2SAT 94
[2024-04-23] MEDS: DOCUSATE SOD 100 MG CAP PO ONE (22:12)
[2024-04-23] MEDS: PANTOPRAZOLE 40 MG/10 ML VIAL INJ IV SCH (22:19)
[2024-04-24] VITALS (7 sets, daily range): BP systolic 120–142; BP diastolic 59–71; PULSE 67–75; RESP 17–19; TEMP 97.8–98.2; O2SAT 93–100
[2024-04-24 06:17] LABS: Basophils # (auto) 0 10 ^3/uL (0-0.2); Basophils % (auto) 0.3 % (0.0-2.0); Eosinophils # (auto) 0.1 10 ^3/uL (0-0.8); Eosinophils % (auto) 2.2 % (0.0-7.0); Hematocrit 30.7 % (36.0-46.0); Hemoglobin 9.7 g/dL (12.2-16.2); Lymphocytes # (auto) 1.6 10 ^3/uL (0.4-5.4); Lymphocytes % (auto) 29.2 % (10.0-50.0); Mean Corpuscular Hemoglobin 24.3 pg (28.0-32.0); Mean Corpuscular Hgb Conc. 31.7 g/dL (32.0-36.0); Mean Corpuscular Volume 76.5 fL (80.0-100.0); Monocytes # (auto) 0.6 10 ^3/uL (0-1.3); Monocytes % (auto) 10.4 % (0.0-12.0); Neutrophils # (auto) 3.1 10 ^3/uL (1.6-8.6); Neutrophils % (auto) 57.9 % (37.0-80.0); Nucleated Red Blood Cells % 0.1 %; Platelet Count (auto) 313 10^3/uL (140-450); Red Blood Cells 4.01 10^6/uL (4.0-5.20); Red Cell Distribution Width 19.4 % (11.8-14.3); White Blood Cell 5.4 10^3/uL (4.4-10.8)
[2024-04-24 06:33] LABS: Alanine Aminotransferase 102 U/L (7-40); Albumin 3.7 g/dL (3.2-4.8); Alkaline Phosphatase 138 U/L (46-116); Anion Gap 4 (5-15); Aspartate Aminotransferase 101 U/L (13-40); BUN/Creatinine Ratio 7.8 (10.0-20.0); Bilirubin, Total 0.5 mg/dL (0.2-1.0); Blood Urea Nitrogen 5 mg/dL (9-23); Carbon Dioxide 30 mmol/L (20-31); Chloride 106 mmol/L (98-107); Glucose 95 mg/dL (74-106); Potassium 3.2 mmol/L (3.5-5.1); Sodium 140 mmol/L (136-145); Total Protein 6.2 g/dL (5.7-8.2)
[2024-04-24] MEDS: POTASSIUM EFFERVESENT TAB 25 MEQ PO ONE (08:30)
[2024-04-24] MEDS: DOCUSATE SOD 100 MG CAP PO SCH (09:23)
[2024-04-24] MEDS: POLYETHYLENE GLYCOL 17 GM PWDR PO SCH (09:23)
--- NOTE | 2024-04-24 12:16 | DVHDS2 ---
Discharge Summary Date of Admission Apr 21, 2024 at 21:36 Date of Discharge: Apr 24, 2024 Labs/Diagnostic Data: Laboratory Results Test 04/24/24 05:08 04/23/24 06:53 04/21/24 13:40 04/21/24 12:50 White Blood Count 5.4 10^3/uL (4.4-10.8) Red Blood Count 4.01 10^6/uL (4.0-5.20) Hemoglobin 9.7 g/dL (12.2-16.2) Hematocrit 30.7 % (36.0-46.0) Mean Corpuscular Volume 76.5 fL (80.0-100.0) Mean Corpuscular Hemoglobin 24.3 pg (28.0-32.0) Mean Corpuscular Hemoglobin Concent 31.7 g/dL (32.0-36.0) Red Cell Distribution Width 19.4 % (11.8-14.3) Platelet Count 313 10^3/uL (140-450) Mean Platelet Volume 7.0 fL (6.9-10.8) Neutrophils (%) (Auto) 57.9 % (37.0-80.0) Lymphocytes (%) (Auto) 29.2 % (10.0-50.0) Monocytes (%) (Auto) 10.4 % (0.0-12.0) Eosinophils (%) (Auto) 2.2 % (0.0-7.0) Basophils (%) (Auto) 0.3 % (0.0-2.0) Neutrophils # (Auto) 3.1 10 ^3/uL (1.6-8.6) Lymphocytes # (Auto) 1.6 10 ^3/uL (0.4-5.4) Monocytes # (Auto) 0.6 10 ^3/uL (0-1.3) Eosinophils # (Auto) 0.1 10 ^3/uL (0-0.8) Basophils # (Auto) 0 10 ^3/uL (0-0.2) Nucleated Red Blood Cells 0.1 % Sodium Level 140 mmol/L (136-145) Potassium Level 3.2 mmol/L (3.5-5.1) Chloride Level 106 mmol/L (98-107) Carbon Dioxide Level 30 mmol/L (20-31) Anion Gap 4 (5-15) Blood Urea Nitrogen 5 mg/dL (9-23) Creatinine 0.64 mg/dL (0.550-1.02) Glomerular Filtration Rate Calc 110 mL/min (>90) BUN/Creatinine Ratio 7.8 (10.0-20.0) Serum Glucose 95 mg/dL (74-106) Calcium Level 9.0 mg/dL (8.7-10.4) Total Bilirubin 0.5 mg/dL (0.2-1.0) Aspartate Amino Transferase (AST) 101 U/L (13-40) Alanine Aminotransferase (ALT) 102 U/L (7-40) Alkaline Phosphatase 138 U/L (46-116) Total Protein 6.2 g/dL (5.7-8.2) Albumin 3.7 g/dL (3.2-4.8) Iron Level 38 ug/dL (50-170) Total Iron Binding Capacity 438 ug/dL (250-425) Percent Iron Saturation 8.7 % (15-50) Beta HCG, Quantitative < 1.5 mIU/mL (1.5-4.2) Urine Color Yellow (Yellow) Urine Clarity Clear (Clear) Urine pH 6.5 (5.0-9.0) Urine Specific [place] 1.014 (1.001-1.035) Urine Protein Negative (Negative) Urine Ketones 2+ (Negative) Urine Blood 2+ /uL (Negative) Urine Nitrite Negative (Negative) Urine Bilirubin Negative (Negative) Urine Urobilinogen 3 mg/dL (Negative) Urine Leukocyte Esterase Negative /uL (Negative) Urine RBC 25 /hpf (0 - 4) Urine WBC 1 /hpf (0 - 5) Urine Squamous Epithelial Cells Few /hpf (<5) Urine Bacteria None seen /hpf (None Seen) Urine Mucus Few (None Seen) Urine Glucose Normal mg/dL (Normal) Other Laboratory Tests 04/24/24 05:08 Brief Hx & Hospital Course: 48 years old female comes into the hospital with complaint of right upper quadrant abdominal pain, during initial evaluation patient found to have increased lipase, increased transaminitis, patient is going to be admitted to hospital for acute pancreatitis, will keep patient n.p.o., IV fluids, IV normal saline, patient found to be hypokalemic patient's potassium will be replaced, also patient had finding of nonobstructive kidney stone Patient was admitted for abdominal pain related to acute pancreatitis. Patient had elevated liver enzymes most likely related to smoking and drinking. Patient was seen by general surgery as well as GI, MRCP was negative for choledocholithiasis. Patient was cleared for discharge she will follow-up with her PCP in 1 week. The patient received proper medical treatment and medications. Vital signs, Imaging and Laboratory Work was monitored daily. All consults recommendations were followed as provided. There were no complaints or new complaints upon discharge, all questions and concerns were answered. Patient was advised to return to the ER or call 911 if any headaches, dizziness, shortness of breath, chest pain, bleeding, fevers, or worsening of medical condition. Patient/Family was counseled about treatment plan, medications, possible side effects, patient verbalized understanding. All questions were answered to the best of my ability. The patient symptoms improved and they are okay to be DC. Condition at Discharge: Stable Final Diagnosis/Problems List ABD PAIN PANCREATITITS-MOST LIKELY ETOH INDUCED Discharge Disposition: Home Discharge Instruct/Medications Diet: Regular Activity: No Restrictions, As Tolerated Discharge Statement: "Patient was advised to return to the ER or call 911 if any headaches, dizziness, shortness of breath, chest pain, abdominal pain, bleeding, fevers, or worsening of medical condition. Patient was counseled about treatment plan, medications, possible side effects, patientverbalized understanding. All questions were answered to the best of my ability. This discharge took greater then 30 minutes in planning, reviewing documentation, counseling the patient, and discussing with other team members." ASSESSMENT ASSESSMENT Assessment ABD PAIN PANCREATITITS-MOST LIKELY ETOH INDUCED BRITTANEY SORIANO NP Apr 24, 2024 12:16
--- NOTE | 2024-04-24 14:12 | DVHPN2 ---
Progress Note - Dictate Date Seen: Apr 24, 2024 Medical Necessity Reason Pt with a Central, PICC or Fol: No Subjective Patient seen at bedside Sleeping comfortably Lipase level and liver enzymes are trending down Slight improvement in pain Patient has heavy menstrual cycles vital signs Vital Sign Date Time Temp Pulse Resp B/P (MAP) Pulse Ox O2 Delivery O2 Flow Rate FiO2 04/24/24 13:00 97.9 72 17 135/71 (92) 93 97.9 04/24/24 08:00 Room Air* 0 21 Total Intake and Output 04/23/24 04/23/24 04/24/24 15:00 23:00 07:00 Intake Total 780 ml 600 ml Balance 780 ml 600 ml medications Current Medications Medications Dose Ordered Sig/Jose Route Start Time Stop Time Status Last Admin Dose Admin Sodium Chloride 1,000 ml @ 100 mls/hr Q10H IV 04/22/24 04:15 04/24/24 07:00 100 MLS/HR Ondansetron HCl 4 mg Q4HP PRN IV 04/22/24 04:15 04/23/24 17:23 4 MG Morphine Sulfate 2 mg Q4HPRN PRN IV 04/22/24 04:15 04/24/24 06:50 2 MG Oxycodone HCl 10 mg Q12HR PO 04/23/24 10:00 04/24/24 09:23 10 MG Acetaminophen/ Hydrocodone Bitart 1 tab Q12HP PRN PO 04/23/24 11:15 UNV Docusate Sodium 100 mg BID PO 04/24/24 10:00 04/24/24 09:23 100 MG Pantoprazole Sodium 40 mg DAILY IV 04/23/24 22:00 04/24/24 10:00 40 MG Polyethylene Glycol 17 gm DAILY PO 04/24/24 10:00 04/27/24 09:59 objective Alert, oriented x3 PERRLA No JVD Clear breath sounds bilaterally S1-S2 regular rate and rhythm no murmur Abdomen tender, no guarding;obese Equal strength bilaterally on upper and lower extremities No lower extremity edema laboratory and microbiology Laboratory Tests 04/24/24 05:08 Test 04/24/24 05:08 Range/Units Serum Glucose 95 74-106 mg/dL Problems(with codes): (1) Smoking (2) ETOH abuse (3) Elevated liver enzymes (4) Pancreatitis Prognosis Plan Discharge planning is in progress Advance diet as tolerated; monitor labs Patient counseled about discontinuing smoking and alcohol There does not appear to be any gallstones Likely EtOH and smoking related pancreatitis with differential diagnosis of sphincter of Oddi dysfunction Outpatient follow up with GI Services for ongoing observation and management Outpatient follow up with customs patrol officer for metromenorrhagia Plan discussed with: Patient GLENNA MEJÍA MD Apr 24, 2024 14:12
--- NOTE | 2024-04-24 18:30 | DVHHP2 ---
Admitting Diagnosis: Admission date: 04/21/2024 Abdominal pain History of Present Illness Patient is a 48-year-old female with a past medical history of hypertension and pancreatitis. Patient reports to the ED for a chief complaint of right upper quadrant pain for the last day that radiates to her right flank region. Patient reports nausea and vomiting with the last episode being this morning. Patient mentions that they have normal bowel movements. Patient denies being at this time. Patient drinks alcohol and smokes cigarettes. Patient's last alcoholic drink was last night. Patient is currently experiencing grief as son on April 15, 2024. While in the emergency department the patient was evaluated by the provider, As per provider: Labs, vital signs, and imagining monitored. Patient will be admitted for further evaluation and treatment. I discussed admission with the patient/family and is in agreement to treatment plan Patient Family History: Hypertension G8 MOTHER Allergies: Uncoded Allergies: HCTZ (Allergy, Unknown, 04/21/24) HYDROCHLOROTHYAZIDE Home Meds Reported Medications Pantoprazole Sodium Sesquihydr (Pantoprazole Sodium) 40 Mg Tab, 40 MG PO DAILY, TAB 04/22/24 Amlodipine Besylate (Amlodipine Besylate) 5 Mg Tab, 10 MG PO DAILY, MG 04/22/24 Current Medications Current Medications Medications (Trade) Dose Ordered Sig/Jose Route PRN Reason Start Time Stop Time Status Last Admin Docusate Sodium (Colace Capsule) 100 mg BID PO 04/24/24 10:00 04/24/24 09:23 Pantoprazole Sodium (Protonix) 40 mg DAILY IV 04/23/24 22:00 04/24/24 10:00 Polyethylene Glycol (Miralax 17GM Powder) 17 gm DAILY PO 04/24/24 10:00 04/27/24 09:59 Review of Systems Constitutional: denies chills, denies fever, denies malaise Eyes: denies eye pain, denies vision change ENT: denies ear pain, denies headache, denies nasal congestion, denies painful swallowing, denies voice change Cardiovascular: denies chest pain, denies edema, denies orthopnea, denies palpitations, denies paroxysmal nocturnal dyspnea Respiratory: denies cough, denies shortness of breath Gastrointestinal: denies constipation, denies diarrhea, denies nausea, denies vomiting Genitourinary: denies dysuria, denies frequent urination, denies urethral discharge Musculoskeletal: denies back pain, denies joint pain, denies muscle pain Skin: denies bruising, denies itching, denies rash Neurological: denies focal weakness, denies headache, denies sensory changes Psychiatric: denies anxiety, denies depression Endocrine: denies polydipsia, denies polyuria Hematologic/Lymphatic: denies easy bleeding, denies easy bruising, denies enlarged lymph nodes Allergic/Immunologic: denies allergy, denies hives Vital Signs Vital Signs Date Time Temp Pulse Resp B/P (MAP) Pulse Ox O2 Delivery O2 Flow Rate FiO2 04/24/24 16:24 97.8 73 18 131/63 (85) 100 97.8 04/24/24 08:00 Room Air* 0 21 Physical Exam General Appearance: alert, no distress HEENT: EOMI, PERRLA, normal external inspect of ears, no icterus, no nasal drainage Neck: no carotid bruit, no jugular venous distention (JVD), no lymphadenopathy Chest: normal thorax Respiratory: clear to auscultation, normal air movement Cardiovascular: regular rate and rhythm, no diastolic murmur, no jugular venous distention (JVD), no rub, no systolic murmur Abdominal: soft, no hepatomegaly, no mass, no splenomegaly, no tenderness Genitourinary: grossly normal external Musculoskeletal: no joint tenderness, no swelling Extremities: normal pulses, no calf tenderness, no clubbing, no cyanosis, no edema Skin: no bruising, no jaundice, no rash Neurological: alert, No focal deficit Results Labs Test 04/24/24 05:08 04/23/24 06:53 04/21/24 13:40 04/21/24 12:50 Range/Units White Blood Count 5.4 # 4.4-10.8 10^3/uL Red Blood Count 4.01 4.0-5.20 10^6/uL Hemoglobin 9.7 L 12.2-16.2 g/dL Hematocrit 30.7 L 36.0-46.0 % Mean Corpuscular Volume 76.5 L 80.0-100.0 fL Mean Corpuscular Hemoglobin 24.3 L 28.0-32.0 pg Mean Corpuscular Hemoglobin Concent 31.7 L 32.0-36.0 g/dL Red Cell Distribution Width 19.4 H 11.8-14.3 % Platelet Count 313 140-450 10^3/uL Mean Platelet Volume 7.0 6.9-10.8 fL Neutrophils (%) (Auto) 57.9 37.0-80.0 % Lymphocytes (%) (Auto) 29.2 10.0-50.0 % Monocytes (%) (Auto) 10.4 0.0-12.0 % Eosinophils (%) (Auto) 2.2 0.0-7.0 % Basophils (%) (Auto) 0.3 0.0-2.0 % Neutrophils # (Auto) 3.1 1.6-8.6 10 ^3/uL Lymphocytes # (Auto) 1.6 0.4-5.4 10 ^3/uL Monocytes # (Auto) 0.6 0-1.3 10 ^3/uL Eosinophils # (Auto) 0.1 0-0.8 10 ^3/uL Basophils # (Auto) 0 0-0.2 10 ^3/uL Nucleated Red Blood Cells 0.1 % Sodium Level 140 136-145 mmol/L Potassium Level 3.2 L 3.5-5.1 mmol/L Chloride Level 106 98-107 mmol/L Carbon Dioxide Level 30 20-31 mmol/L Anion Gap 4 L 5-15 Blood Urea Nitrogen 5 L 9-23 mg/dL Creatinine 0.64 0.550-1.02 mg/dL Glomerular Filtration Rate Calc 110 >90 mL/min BUN/Creatinine Ratio 7.8 L 10.0-20.0 Serum Glucose 95 74-106 mg/dL Calcium Level 9.0 8.7-10.4 mg/dL Total Bilirubin 0.5 0.2-1.0 mg/dL Aspartate Amino Transferase (AST) 101 H 13-40 U/L Alanine Aminotransferase (ALT) 102 H 7-40 U/L Alkaline Phosphatase 138 H 46-116 U/L Total Protein 6.2 5.7-8.2 g/dL Albumin 3.7 3.2-4.8 g/dL Lipase 49 12-53 U/L Iron Level 38 L 50-170 ug/dL Total Iron Binding Capacity 438 H 250-425 ug/dL Percent Iron Saturation 8.7 L 15-50 % Beta HCG, Quantitative < 1.5 L 1.5-4.2 mIU/mL Urine Color Yellow Yellow Urine Clarity Clear Clear Urine pH 6.5 5.0-9.0 Urine Specific [place] 1.014 1.001-1.035 Urine Protein Negative Negative Urine Ketones 2+ H Negative Urine Blood 2+ H Negative /uL Urine Nitrite Negative Negative Urine Bilirubin Negative Negative Urine Urobilinogen 3 H Negative mg/dL Urine Leukocyte Esterase Negative Negative /uL Urine RBC 25 0 - 4 /hpf Urine WBC 1 0 - 5 /hpf Urine Squamous Epithelial Cells Few <5 /hpf Urine Bacteria None seen None Seen /hpf Urine Mucus Few None Seen Urine Glucose Normal Normal mg/dL Plan 1. Pancreatitis Monitor, MRCP 2. Hemorrhage Monitor 3. Elevated liver enzymes Monitor, daily labs 4. Dilated CBD without choledocholilithiasis Monitor, n.p.o., GI consult, surgical consult 5. Smoker Monitor, smoking cessation 6. EtOH abuse Monitor Plan discussed with: Patient, Other BRITTANEY SORIANO NP Apr 24, 2024 18:30
== END 2024-04-24 18:18 | disposition home or self-care (01) | DRG 438 ==
LOC: EEVIPCON 12:43 → ER 12:43 → EEVIPCON 21:36 → TELE 21:36 → OVERFLOW 04-22 05:00 → WEST WING 04-22 05:23 → TELE-WESTW 04-22 05:53
PROVIDERS: ADMIT Internal Medicine; ATTEND Student in an Organized Health Care Education/Training Program
DX: K85.20 Alcohol induced acute pancreatitis without necrosis or infection (principal); K83.1 Obstruction of bile duct; D50.9 Iron deficiency anemia, unspecified; E87.6 Hypokalemia; I10 Essential (primary) hypertension; N20.0 Calculus of kidney; N92.0 Excessive and frequent menstruation with regular cycle; F17.210 Nicotine dependence, cigarettes, uncomplicated; F10.10 Alcohol abuse, uncomplicated; Y90.9 Presence of alcohol in blood, level not specified; Z79.899 Other long term (current) drug therapy
CPT/HCPCS: 36415; 74181; 76705; 80048; 80053; 81001; 83540; 83550; 83690; 84702; 85025; 96374; 96375; 99291; G0378; J2405; J2470; J3480

== ENCOUNTER 2024-07-12 17:27 | Emergency (ER) | payer SELFPAY ==
[2024-07-11 22:59] VITALS: PULSE 64; RESP 18; O2SAT 100
[~2024-07-12] VITALS: Ht 165.1 cm; Wt 91.5 kg
[~2024-07-12 17:27] MED LIST: AMLO1TAB22 PO; PANT40T PO
[2024-07-12 18:49] LABS: Urine Bacteria None Seen /hpf (None Seen)
[2024-07-12 19:02] LABS: Urine Blood 3+ /uL (Negative); Urine Clarity Ex.Turbid (Clear); Urine Color Dark-Yellow (Yellow); Urine Mucus FEW (None Seen); Urine Protein, UAD 1+ (Negative); Urine Squamous Epithelial Cell MANY /hpf (<5); Urine Urobilinogen 8 mg/dL (Negative); Urine WBC 35 /HPF (0-5); Urine pH 5.5 (5.0-9.0)
--- NOTE | 2024-07-12 19:29 | DVH ---
Exam: CT CT AB PEL WO CON-NO ORAL OR IV History: FLANK PAIN Comparison Study: None available at time of dictation. TECHNIQUE: Multidetector CT of the abdomen was performed from lung bases to pubic symphysis. Imaging was performed without IV contrast. Axial, coronal and sagittal multiplanar reformats were obtained fr om the axial data set by the technologist. Radiation Dose Information: CT Dose: CTDI volume is 16.78 mGy. Dose-length product is 825.02 mGy*cm FINDINGS: Evaluation of solid organs is limited due to lack of intravenous contrast use. Findings: Lung Bases: No acute or significant lung base finding. Normal heart size. No pleural or pericardial effusion. Liver: The liver is normal in size. No focal lesions. Gallbladder and Biliary Tree: Unremarkable Spleen: Unremarkable Pancreas: The pancreas is grossly normal in appearance. Adrenal Glands: Unremarkable Kidneys: Kidneys are grossly normal without calculi or hydronephrosis. Bladder: Grossly unremarkable for degree of distention. Bowel: The stomach is grossly normal in appearance. Small hiatal hernia. Small bowel and colon are no rmal in caliber and distribution. The appendix is not visualized; however, no secondary findings of acute appendicitis identified. Ascites: Absent Lymphadenopathy: No mesenteric, retroperitoneal or periportal lymphadenopathy. Abdominal Wall and Mesentery: Unremarkable. Vasculature: The visualized abdominal aorta is normal in size and caliber. Evaluation of abdominal a nd pelvic vessels is limited due to lack of intravenous contrast. Pelvic Organs: Unremarkable Musculoskeletal: No aggressive focal bony lesions, acute fractures or dislocation. Soft tissues: Unremarkable IMPRESSION: 1. No calcifications in the gallbladder 2. No nephrolithiasis or hydronephrosis. 3. Small hiatal hernia 4. No findings of bowel obstruction. 5. No free air or free fluid 6. Radiation optimization: All CT scans at this facility use at least one of these dose optimization tristan hniques: automated exposure control mA and/or kV adjustment per patient size (includes targeted exam s where dose is matched to clinical indication) or iterative reconstruction.
[2024-07-12] MEDS: KETOROLAC TROMETH 30 MG/ML 1ML VIAL IM ONE (19:56)
[2024-07-12 20:17] LABS: Eosinophils # (auto) 0.1 10 ^3/uL (0-0.8); Lymphocytes # (auto) 1.2 10 ^3/uL (0.4-5.4); Monocytes # (auto) 0.5 10 ^3/uL (0-1.3)
[2024-07-12 20:18] LABS: Basophils # (auto) 0 10 ^3/uL (0-0.2); Basophils % (auto) 0.5 % (0.0-2.0); Eosinophils % (auto) 1.5 % (0.0-7.0); Hematocrit 32.9 % (36.0-46.0); Hemoglobin 10.5 g/dL (12.2-16.2); Lymphocytes % (auto) 13.3 % (10.0-50.0); Mean Corpuscular Hemoglobin 24.5 pg (28.0-32.0); Mean Corpuscular Hgb Conc. 32.1 g/dL (32.0-36.0); Mean Corpuscular Volume 76.4 fL (80.0-100.0); Monocytes % (auto) 5.8 % (0.0-12.0); Neutrophils # (auto) 7.2 10 ^3/uL (1.6-8.6); Neutrophils % (auto) 78.9 % (37.0-80.0); Platelet Count (auto) 339 10^3/uL (140-450); Red Cell Distribution Width 22.4 % (11.8-14.3); White Blood Cell 9.1 10^3/uL (4.4-10.8)
[2024-07-12 20:29] LABS: Albumin 4.4 g/dL (3.2-4.8); Anion Gap 8 (5-15); Calcium 9.7 mg/dL (8.7-10.4); Carbon Dioxide 25 mmol/L (20-31); Chloride 105 mmol/L (98-107); Glucose 105 mg/dL (74-106); Sodium 138 mmol/L (136-145)
[2024-07-12 20:30] LABS: Alanine Aminotransferase 167 U/L (7-40); Alkaline Phosphatase 158 U/L (46-116); Aspartate Aminotransferase 162 U/L (13-40); Bilirubin, Total 2.5 mg/dL (0.2-1.0); Blood Urea Nitrogen 8 mg/dL (9-23); Lipase 125 U/L (12-53); Potassium 3.3 mmol/L (3.5-5.1); Total Protein 7.2 g/dL (5.7-8.2)
[2024-07-12] MEDS ORDERED: HYDR-4902 PO (21:03)
[2024-07-12] MEDS ORDERED: ZOFR4T PO (21:03)
--- NOTE | 2024-07-12 21:04 | ED.PDOC ---
GI ASSESSMENT HPI Comments 48-year-old female complaining of right-sided flank pain and abdominal pain radiates to her back. States it is pain started one week ago. Has been having intermittent nausea and vomiting. Nothing makes it better, nothing makes it worse. Reports pain. No new foods no new medications. Chief Complaint: Abdominal Pain Time Seen by MD: 17:30 Primary Care Provider: ? Reviewed Notes: Nurses Notes Allergies: Uncoded Allergies: HCTZ (Allergy, Unknown, 04/21/24) HYDROCHLOROTHYAZIDE Home Meds Reported Medications Pantoprazole Sodium Sesquihydr (Pantoprazole Sodium) 40 Mg Tab, 40 MG PO DAILY, TAB 04/22/24 Amlodipine Besylate (Amlodipine Besylate) 5 Mg Tab, 10 MG PO DAILY, MG 04/22/24 Information Source: Patient Mode of Arrival: Ambulatory Past Medical History PAST MEDICAL HISTORY: HTN Surgical History: Denies all surgeries HOT DIPPER History: Denies all HOT DIPPER Hx Family History Family History: Unknown Social History Smoker: Cigarettes Alcohol: Occasionally Drugs: Denies Drug Use Lives In: Home Constitutional: denies: chills, diaphoresis, fatigue, fever, malaise, sweats, weakness, others EENTM: denies: blurred vision, double vision, ear bleeding, ear discharge, ear drainage, ear pain, ear ringing, eye pain, eye redness, hearing loss, mouth pain, mouth swelling, nasal discharge, nose bleeding, nose congestion, nose pain, photophobia, tearing, throat pain, throat swelling, voice changes, others Respiratory: denies: cough, hemoptysis, orthopnea, SOB at rest, shortness of breath, SOB with excertion, stridor, wheezing, others Cardiovascular: denies: chest pain, dizzy spells, diaphoresis, Dyspnea on e xertion, edema, irregular heart beat, left arm pain, lightheadedness, palpitations, PND, syncope, others Gastrointestinal: reports: abdomen distended; denies: abdominal pain, blood streaked bowels, constipated, diarrhea, dysphagia, difficulty swallowing, hematemesis, melena, nausea, poor appetite, poor fluid intake, rectal bleeding, rectal pain, vomiting, others Genitourinary: denies: abnormal vagina bleeding, burning, dyspareunia, dysuria, flank pain, frequency, hematuria, incontinence, pain, , vagina discharge, urgency, others Neurological: denies: dizziness, fainting, headache, left sided numbness, left sided weakness, numbness, paresthesia, pre-existing deficit, right sided numbness, right sided weakness, seizure, speech problems, tingling, tremors, weakness, others Musculoskeletal: denies: back pain, gout, joint pain, joint swelling, muscle pain, muscle stiffness, neck pain, others Integumetry: denies: bruises, change in color, change in hair/nails, dryness, laceration, lesions, lumps, rash, wounds, others Allergic/Immunocompromised: denies: Difficulty Healing, Frequent Infections, Hives, Itching, others Hematologic/Lymphatic: denies: anemia, blood clots, easy bleeding, easy bruising, swollen glands, others Physical Exam General Appearance: Moderate Distress, Normal HEENT: Normal ENT Inspection, Pharynx Normal, TMs Normal Neck: Full Range of Motion, Non-Tender, Normal, Normal Inspection Respiratory: Chest Non-Tender, Lungs Clear, No Accessory Muscle Use, No Respiratory Distress, Normal Breath Sounds Cardiovascular: No Edema, No JVD, No Murmur, No Gallop, Normal Peripheral Pulses, Regular Rate/Rhythm Breast Exam: Deferred Gastrointestinal: No Organomegaly, No Pulsatile Mass, Normal Bowel Sounds, RLQ, RUQ, Soft, Tenderness Genitalia: Deferred Pelvic: Deferred Rectal: Deferred Extremities: No calf tenderness, Normal capillary refill, Normal inspection, Normal range of motion, Non-tender, No pedal edema Musculoskeletal : Apperance: Normal Neurologic: Alert, material loader II-XII nml as Tested, No Motor Deficits, Normal Affect, Normal Mood, No Sensory Deficits Cerebellar Function: Normal Reflexes: Normal Skin: Dry, Normal Color, Warm Lymphatic: No Adenopathy Was a procedure done? Was a procedure done?: No GI differential Dx Differential Diagnosis: Bowel Obstruction, Cholangitis, Constipation, Gastroenteritis, Hepatitis, Ischemic Bowel, Pancreatitis, UTI X-Ray, Labs, Meds, VS Vital Signs Date Time Temp Pulse Resp B/P (MAP) Pulse Ox O2 Delivery O2 Flow Rate FiO2 07/12/24 19:57 89 20 142/74 (96) 100 07/12/24 17:34 97.8 89 18 139/80 (99) 96 Lab Test 07/12/24 19:49 1/24/25 17:50 Range/Units White Blood Count 9.1 4.4-10.8 10^3/uL Red Blood Count 4.30 4.0-5.20 10^6/uL Hemoglobin 10.5 L 12.2-16.2 g/dL Hematocrit 32.9 L 36.0-46.0 % Mean Corpuscular Volume 76.4 L 80.0-100.0 fL Mean Corpuscular Hemoglobin 24.5 L 28.0-32.0 pg Mean Corpuscular Hemoglobin Concent 32.1 32.0-36.0 g/dL Red Cell Distribution Width 22.4 H 11.8-14.3 % Platelet Count 339 140-450 10^3/uL Mean Platelet Volume 6.7 L 6.9-10.8 fL Neutrophils (%) (Auto) 78.9 37.0-80.0 % Lymphocytes (%) (Auto) 13.3 10.0-50.0 % Monocytes (%) (Auto) 5.8 0.0-12.0 % Eosinophils (%) (Auto) 1.5 0.0-7.0 % Basophils (%) (Auto) 0.5 0.0-2.0 % Neutrophils # (Auto) 7.2 1.6-8.6 10 ^3/uL Lymphocytes # (Auto) 1.2 0.4-5.4 10 ^3/uL Monocytes # (Auto) 0.5 0-1.3 10 ^3/uL Eosinophils # (Auto) 0.1 0-0.8 10 ^3/uL Basophils # (Auto) 0 0-0.2 10 ^3/uL Nucleated Red Blood Cells 0.0 % Sodium Level 138 136-145 mmol/L Potassium Level 3.3 L 3.5-5.1 mmol/L Chloride Level 105 98-107 mmol/L Carbon Dioxide Level 25 20-31 mmol/L Anion Gap 8 5-15 Blood Urea Nitrogen 8 L 9-23 mg/dL Creatinine 0.80 0.550-1.02 mg/dL Glomerular Filtration Rate Calc 91 >90 mL/min BUN/Creatinine Ratio 10.0 10.0-20.0 Serum Glucose 105 74-106 mg/dL Calcium Level 9.7 8.7-10.4 mg/dL Total Bilirubin 2.5 H 0.2-1.0 mg/dL Aspartate Amino Transferase (AST) 162 H 13-40 U/L Alanine Aminotransferase (ALT) 167 H 7-40 U/L Alkaline Phosphatase 158 H 46-116 U/L Total Protein 7.2 5.7-8.2 g/dL Albumin 4.4 3.2-4.8 g/dL Lipase 125 H 12-53 U/L Urine Color Dark-yellow Yellow Urine Clarity Ex.turbid Clear Urine pH 5.5 5.0-9.0 Urine Specific [place] 1.020 1.001-1.035 Urine Protein 1+ H Negative Urine Ketones 2+ H Negative Urine Blood 3+ H Negative /uL Urine Nitrite Negative Negative Urine Bilirubin 1+ H Negative Urine Urobilinogen 8 H Negative mg/dL Urine Leukocyte Esterase 1+ Negative /uL Urine RBC 660 0 - 4 /hpf Urine Microscopic WBC 35 H 0-5 /HPF Urine Squamous Epithelial Cells Many <5 /hpf Urine Bacteria None seen None Seen /hpf Urine Mucus Few None Seen Urine Glucose Normal Normal mg/dL Current Medications Medications (Trade) Dose Ordered Sig/Jose Route Start Time Stop Time Status Last Admin Ketorolac Tromethamine (Toradol Injection) 30 mg ONCE ONCE IM 07/12/24 18:45 07/12/24 18:46 DC 07/12/24 19:56 X-Ray, Labs, Meds, VS Comment Patient was diagnosed with a keep pancreatitis. The patient was elevated liver enzymes, total and lipase Patient was given IV fluids in office advised to take her pain medications did not increased fluid hydration. She was returned emergency department next 2-4 days if symptoms worsen. Time of 1ST Reevaluation: 21:04 Reevaluation 1ST: Improved Patient Education/Counseling: Diagnosis, Treatment, Need For Follow Up (Patient advised to follow-up in the emergency room in the next 24 to 48 hours if symptoms do not improve. Advised follow-up with PCP in the next 3 to 5 days. Patient verbalized understanding. ) Family Education/Counseling: Diagnosis Departure 1 Departure Time of Disposition: 20:58 Impression: Primary Impression: Acute pancreatitis Qualified Codes: K85.10 - Biliary acute pancreatitis without necrosis or infection Disposition: HOME / SELF CARE / HOMELESS Condition: Fair e-Prescriptions Hydrocodone-Acetaminophen (Hydrocodone Bitartrate/AC 5-325 mg) 1 Tab Tab 1 TAB PO TID PRN, #12 TAB Prov: PRICE EMLVIN 07/12/24 Ondansetron Odt 4MG Tab (ZOFRAN PO) 4 Mg Tb 4 MG PO TID PRN, #20 TAB ODT TAB-DISSOLVE IN MOUTH, THEN SWALLOW Prov: PRICE MELVIN 07/12/24 Discharged With: Self Critical Care Note Critical Care Time?: No Stability Stability form required: No Heart Score Heart Score: Heart Score Response (Comments) Value History N/A 0 EKG N/A 0 Age N/A 0 Risk Factors N/A 0 Troponin N/A 0 Total 0 PRICE MELVIN Jul 12, 2024 21:04
[2024-07-12 21:47] VITALS: BP 119/72; PULSE 71; RESP 16; TEMP 98.2; O2SAT 97
[2024-07-12] MEDS: SODIUM CHLORIDE 0.9% 1,000 ML IV ONE (21:52)
[2024-07-12] MEDS: ONDANSETRON HCL 4 MG/2 ML VIAL IV ONE (21:52)
== END 2024-07-12 23:06 | disposition home or self-care (01) ==
LOC: ER 17:27
DX: K85.10 Biliary acute pancreatitis without necrosis or infection (principal); F17.210 Nicotine dependence, cigarettes, uncomplicated; I10 Essential (primary) hypertension; Z88.8 Allergy status to other drugs, medicaments and biological substances
CPT/HCPCS: 36415; 74176; 80053; 81001; 83690; 85025; 96361; 96372; 96374; 99285; J1885; J2405; J7030

== ENCOUNTER 2024-08-05 12:39 | Emergency (ER) | payer MEDICAID, OTHER ==
[~2024-08-05] VITALS: Ht 154.9 cm; Wt 91.2 kg
[~2024-08-05 12:39] MED LIST changes: +HYDR-4902 PO; +ZOFR4T PO
[2024-08-05 13:24] LABS: Urine Bacteria None Seen /hpf (None Seen)
--- NOTE | 2024-08-05 13:47 | DVH ---
US ABDOMEN LIMITED HISTORY: epig RUQ pain COMPARISON: US GALLBLADDER on DOS: 04/21/24 TECHNIQUE: Transverse and longitudinal grayscale and color sonographic images were obtained of the ab domen. FINDINGS: Liver: - Size: 17.6 cm - Echogenicity: Hyperechoic - Surface Contour: Smooth - Liver Lesion(s): None - Portal Vein: Patent and forward flowing. - Bile Ducts: Normal. The common bile duct measures 17 mm. Gallbladder: Distended with sludge. The sonographic Wright sign is negative. Pancreas: Portions not obscured by bowel gas are normal. Kidneys: - Right kidney size: 10.2 cm. 0.9 cm nonobstructive right kidney stone. Aorta and Inferior Vena Cava: The visualized portions of the abdominal aorta and intrahepatic vena ca va are normal. Other: None IMPRESSION: Intra- extra hepatic biliary duct dilation with dilated CBD could be seen with choledocholithiasis. C onsider MRCP for further evaluation. 0.9 cm nonobstructive right kidney stone.
--- NOTE | 2024-08-05 14:10 | ED.PDOC ---
GI ASSESSMENT HPI Comments HPI: Poor Historian. 48 y.o female presents to the ED for a chief complaint of epigastric and right upper quadrant abdominal pain associated . Patient has nausea and vomiting nonbilious nonbloody that started 4 days ago. Patient reports pain is constant and worsens with food and fluid intake. . Patient reports similar pain in the past, was seen at the hospital and diagnosed with gallstones and pancreatitis secondary to ETOH use. Patient reports no recent alcohol consumption. Patient denies any fever, chills, diarrhea. Vitals BP: 127/73 HR: 95 Temp: 98.7 F SPO2: 99% RA RR: 17 Past medical history: HTN Past surgical history: Knee surgery Allergies: HCT REVIEW OF SYSTEMS: CONSTITUTIONAL: Denies acute: fever, diaphoresis, chills, generalized weakness. HEAD: Denies acute: headache, photophobia Eyes: Denies acute: Double vision, vision loss, eye pain, eye discharge. EARS: Denies acute: tinnitus, hearing loss, ear discharge, ear pain, THROAT: Denies acute: sore throat, swelling, difficulty swallowing , pain with swallowing, change in voice. NECK: Denies acute: neck pain, neck swelling, stiff neck. HEART: Denies acute : chest pain, palpitations, LUNGS: Denies acute: SOB, wheezing, cough, hemoptysis ABDOMEN: Denies acute: diarrhea, melena , hematemesis, hematochezia SKIN: Denies acute: rash, redness, lesions, itchiness. EXTREMITIES: Denies acute: calf pain, numbness, tingling, weakness, denies pain in extremity. Denies acute: Low back pain. Neuro: Denies acute: focal neurological deficit, motor or sensory focal neurological deficit, tremors, seizure like activity, confusion, dizziness, change in mental status, loss of bowel or bladder function, cauda equina like symptoms. : Denies acute: dysuria, hematuria, flank pain, increase in urinary frequency. PSYCH: Denies acute: hallucination, suicidal ideation, homicidal ideation. FEMALE: Denies acute: abnormal vaginal bleeding, foul odor, unusual discharge. PHYSICAL EXAM: General: Mild to moderate acute distress, awake and alert. Head: normocephalic, atraumatic. Neck: supple, trachea is midline, no swelling. Throat: Normal phonation. Eyes:, no erythema, no purulent discharge, no proptosis, no icterus. Heart: regular rate, regular rhythm, no significant murmur appreciated. Lungs: no apparent respiratory distress, Able to speak in full sentences. No wheezing, no rhonchi, no crackles. No stridors Clear to auscultation bilaterally. Abdomen: Epigastric and right upper quadrant tender to palpation, non distended, soft, no guarding, no rebound, + bowel sounds. Neuro: Awake, Alert, oriented to name, self, situation, follows commands GCS=15. Speech is normal. Skin: no petechia, no purpura, no cyanosis, non-pale, not jaundice. Lower extremities: --no - Pitting edema no deformity, no focal swelling, no calf TTP. Makes eye contact. moves all four extremities. Face: no apparent facial droop. No CVA tenderness to percussion bilaterally. Ambulating in the ED independently. ED COURSE: At this time 9:39 p.m. The case was discussed with the ER physician at [facility] (HPI, physical exam, labs and diagnostic tests that were available at the time of disposition, ED course, treatment plan) on the phone. They agreed to accept the patient to their service for higher level of care and ERCP and GI evaluation. . Chief Complaint: Abdominal Pain Time Seen by MD: 13:55 Primary Care Provider: none Reviewed Notes: Nurses Notes, Allergies Allergies: Uncoded Allergies: HCTZ (Allergy, Unknown, 04/21/24) HYDROCHLOROTHYAZIDE Home Meds Active Scripts Hydrocodone-Acetaminophen (Hydrocodone Bitartrate/AC 5-325 mg) 1 Tab Tab, 1 TAB PO TID PRN, #12 TAB Prov:PRICE MELVIN 07/12/24 Ondansetron Odt 4MG Tab (ZOFRAN PO) 4 Mg Tb, 4 MG PO TID PRN, #20 TAB ODT TAB-DISSOLVE IN MOUTH, THEN SWALLOW Prov:PRICE MELVIN 07/12/24 Reported Medications Pantoprazole Sodium Sesquihydr (Pantoprazole Sodium) 40 Mg Tab, 40 MG PO DAILY, TAB 04/22/24 Amlodipine Besylate (Amlodipine Besylate) 5 Mg Tab, 10 MG PO DAILY, MG 04/22/24 Information Source: Patient Mode of Arrival: Ambulatory Duration: Since onset Past Medical History PAST MEDICAL HISTORY: HTN Surgical History (Other): knee [employer] History: Denies all [employer] Hx Family History Family History: Unknown Social History Smoker: Cigarettes Alcohol: Occasionally Drugs: Denies Drug Use Lives In: Home Was a procedure done? Was a procedure done?: No GI differential Dx Differential Diagnosis: Esophagitis, Gastroenteritis, Hepatitis, Inflammatory BD, Pancreatitis, Dehydration, Electrolyte Imbalance, Food Poisoning, Other (DDX include Diverticulitis, colitis, gastroenteritis, acute abdomen, SBO, enteritis, constipation, volvulus, appendicitis, Gallbladder disease, choledocolithiasis, ascending cholangitis, pancreatitis, intraAbdominal mass/neoplasm, hepatitis, UTI, pylonephritis, kidney stone, aneurysm, dissection, Inflammatory bowel disease, gastroparesis, ischemic bowel, ovarian torsion, ovarian cyst/mass, tubo-ovarian abscess, , ectopic , PID, STD.) X-Ray, Labs, Meds, VS Vital Signs Date Time Temp Pulse Resp B/P (MAP) Pulse Ox O2 Delivery O2 Flow Rate FiO2 08/05/24 16:15 145/100 08/05/24 15:55 82 16 96 Room Air* 0 21 08/05/24 15:18 82 16 96 Room Air 08/05/24 15:18 98.8 82 16 150/105 (120) 96 98.8 08/05/24 12:50 98.7 95 17 127/73 (91) 99 Lab Test 08/05/24 14:02 08/05/24 13:06 Range/Units White Blood Count 8.5 4.4-10.8 10^3/uL Red Blood Count 4.49 4.0-5.20 10^6/uL Hemoglobin 10.6 L 12.2-16.2 g/dL Hematocrit 33.7 L 36.0-46.0 % Mean Corpuscular Volume 75.0 L 80.0-100.0 fL Mean Corpuscular Hemoglobin 23.7 L 28.0-32.0 pg Mean Corpuscular Hemoglobin Concent 31.6 L 32.0-36.0 g/dL Red Cell Distribution Width 22.9 H 11.8-14.3 % Platelet Count 337 140-450 10^3/uL Mean Platelet Volume 6.9 6.9-10.8 fL Neutrophils (%) (Auto) 78.0 37.0-80.0 % Lymphocytes (%) (Auto) 13.8 10.0-50.0 % Monocytes (%) (Auto) 6.5 0.0-12.0 % Eosinophils (%) (Auto) 1.0 0.0-7.0 % Basophils (%) (Auto) 0.7 0.0-2.0 % Neutrophils # (Auto) 6.7 1.6-8.6 10 ^3/uL Lymphocytes # (Auto) 1.2 0.4-5.4 10 ^3/uL Monocytes # (Auto) 0.6 0-1.3 10 ^3/uL Eosinophils # (Auto) 0.1 0-0.8 10 ^3/uL Basophils # (Auto) 0.1 0-0.2 10 ^3/uL Nucleated Red Blood Cells 0.0 % Sodium Level 139 136-145 mmol/L Potassium Level 3.3 L 3.5-5.1 mmol/L Chloride Level 104 98-107 mmol/L Carbon Dioxide Level 27 20-31 mmol/L Anion Gap 8 5-15 Blood Urea Nitrogen 6 L 9-23 mg/dL Creatinine 0.52 L 0.550-1.02 mg/dL Glomerular Filtration Rate Calc 115 >90 mL/min BUN/Creatinine Ratio 11.5 10.0-20.0 Serum Glucose 98 74-106 mg/dL Lactic Acid Level 0.8 0.4-2.0 mmol/L Calcium Level 9.5 8.7-10.4 mg/dL Total Bilirubin 4.4 H 0.2-1.0 mg/dL Aspartate Amino Transferase (AST) 157 H 13-40 U/L Alanine Aminotransferase (ALT) 141 H 7-40 U/L Alkaline Phosphatase 216 H 46-116 U/L Troponin I High Sensitivity < 3 L </=34 ng/L Total Protein 6.4 5.7-8.2 g/dL Albumin 4.2 3.2-4.8 g/dL Lipase 80 H 12-53 U/L Urine Color Dark-yellow Yellow Urine Clarity Turbid H Clear Urine pH 6.5 5.0-9.0 Urine Specific Daniel 1.023 1.001-1.035 Urine Protein 1+ H Negative Urine Ketones 1+ H Negative Urine Blood Negative Negative /uL Urine Nitrite Negative Negative Urine Bilirubin 2+ H Negative Urine Urobilinogen 6 Negative mg/dL Urine Leukocyte Esterase Negative Negative /uL Urine RBC <1 0 - 4 /hpf Urine Microscopic WBC 8 H 0-5 /HPF Urine Squamous Epithelial Cells Mod <5 /hpf Urine Bacteria None seen None Seen /hpf Urine Mucus Few None Seen Urine Glucose Normal Normal mg/dL Urine Test Negative Negative Current Medications Medications (Trade) Dose Ordered Sig/Jose Route Start Time Stop Time Status Last Admin Piperacillin Sod/ Tazobactam Sod 100 ml @ 100 mls/hr ONCE ONCE IV 08/05/24 14:00 08/05/24 14:59 DC 08/05/24 15:46 Sodium Chloride 1,000 ml @ 1,000 mls/hr Q1H ONCE IV 08/05/24 14:00 08/05/24 14:59 DC 08/05/24 15:43 Ondansetron HCl (Zofran) 8 mg ONCE ONCE IV 08/05/24 14:00 08/05/24 14:10 DC 08/05/24 15:45 Fentanyl Citrate 100 mcg ONCE ONCE IV 08/05/24 15:30 08/05/24 16:05 DC 08/05/24 16:15 Ketorolac Tromethamine (Toradol Injection) 30 mg ONCE ONCE IV 08/05/24 18:00 08/05/24 18:10 DC 08/05/24 18:13 [place] [address] Ph: [phone] DIAGNOSTIC IMAGING Diagnostic Imaging Report : [id number] Signed PATIENT: KAYLA ROSALES ACCT: [id number] UNIT: [id number] : 1975 LOC: ER ROOM / BED: / AGE / SEX: 48 / F ADM STATUS: REG ER SERVICE 1306 ORDERING PHYSICIAN: BING RICHARD DO PROCEDURE(s): ABDL - ABDOMEN LIMITED REASON: epig RUQ pain ORDER NUMBER(s): [id number], ACCESSION NUMBER(s): [id number] US ABDOMEN LIMITED HISTORY: epig RUQ pain COMPARISON: US GALLBLADDER on DOS: 04/21/24 TECHNIQUE: Transverse and longitudinal grayscale and color sonographic images were obtained of the abdomen. FINDINGS: Liver: - Size: 17.6 cm - Echogenicity: Hyperechoic - Surface Contour: Smooth - Liver Lesion(s): None - Portal Vein: Patent and forward flowing. - Bile Ducts: Normal. The common bile duct measures 17 mm. Gallbladder: Distended with sludge. The sonographic Wright sign is negative. Pancreas: Portions not obscured by bowel gas are normal. Kidneys: - Right kidney size: 10.2 cm. 0.9 cm nonobstructive right kidney stone. Aorta and Inferior Vena Cava: The visualized portions of the abdominal aorta and intrahepatic vena cava are normal. Other: None IMPRESSION: Intra- extra hepatic biliary duct dilation with dilated CBD could be seen with choledocholithiasis. Consider MRCP for further evaluation. 0.9 cm nonobstructive right kidney stone. ATED BY: RENE BISWAS MD DICTATED DATE/TIME: 08/05/24 1344 SIGNED BY: RENE BISWAS MD SIGNED DATE/TIME: 08/05/24 1344 CC: Time of 1ST Reevaluation: 14:05 Reevaluation 1ST: Unchanged Time of 2ND Reevaluation: 19:32 (The case was discussed with the GI on-call team (HPI, physical exam, labs and diagnostic tests that were available at the time of disposition, ED course, treatment plan) on the phone. They agree with our management and recommend transfer the patient to higher level care for possible need of ERCP which she has not available at our facility. HIDA scan is not available at this hour either. Dr. Cantu. ) Time of 3RD Reevaluation: 20:17 ([facility] is not available to accept the patient at this time. [facility] is a capacity. [facility] declined. [facility] also declined.) Patient Education/Counseling: Diagnosis, Treatment Family Education/Counseling: No Family Present Comments Patient presented with the above HPI.-abdominal pain-----workup was initiated. patient was found with the above mentioned diagnosis. the following medications were ordered: please refer to order lists of meds and tests obtained by myself Dr. Richard. Patient ED course and VS have been stabilized. Patient has been reassessed in the ED and remained in a stable condition. Pertinent incidental findings were discussed with the patient and/or family. Patient/family voices understanding and is agreeable with plan. Patient has been observed in the ED adequate length of time to insure improvement/stability. Escalation of care considered: Consideration of escalation to observation or admission Patient was transferred to higher level of care for further evaluation and treatment of their presentation. All the reports of any imaging studies that were ordered by myself were reviewed by myself. Departure 1 Departure Time of Disposition: 14:30 Impression: Primary Impression: Choledocholithiasis Additional Impressions: Abdominal pain Nausea and vomiting Hyperbilirubinemia Elevated LFTs Disposition: 02 SHORT TERM HOSPITAL Condition: Guarded Discharged With: Self Critical Care Note Critical Care Time?: Yes (45 min-critical care time only) I personally scribed for BING RICHARD DO ([email or web address]) on 08/05/24 at 14:10. Electronically submitted by Anh Montanez ([employer]). I personally scribed for BING RICHARD DO ([email or web address]) on 08/05/24 at 14:53. Electronically submitted by Anh Montanez ([facility] BING RICHARD DO Aug 05, 2024 14:10
[2024-08-05 14:15] LABS: Urine Blood Negative /uL (Negative); Urine Clarity Turbid (Clear); Urine Color Dark-Yellow (Yellow); Urine Mucus FEW (None Seen); Urine Protein, UAD 1+ (Negative); Urine Specific Gravity 1.023 (1.001-1.035); Urine Squamous Epithelial Cell MOD /hpf (<5); Urine Urobilinogen 6 mg/dL (Negative); Urine WBC 8 /HPF (0-5); Urine pH 6.5 (5.0-9.0)
[2024-08-05 14:43] LABS: Eosinophils # (auto) 0.1 10 ^3/uL (0-0.8); White Blood Cell 8.5 10^3/uL (4.4-10.8)
[2024-08-05 14:45] LABS: Basophils # (auto) 0.1 10 ^3/uL (0-0.2); Basophils % (auto) 0.7 % (0.0-2.0); Hematocrit 33.7 % (36.0-46.0); Hemoglobin 10.6 g/dL (12.2-16.2); Lymphocytes # (auto) 1.2 10 ^3/uL (0.4-5.4); Lymphocytes % (auto) 13.8 % (10.0-50.0); Mean Corpuscular Hemoglobin 23.7 pg (28.0-32.0); Mean Corpuscular Hgb Conc. 31.6 g/dL (32.0-36.0); Monocytes # (auto) 0.6 10 ^3/uL (0-1.3); Monocytes % (auto) 6.5 % (0.0-12.0); Neutrophils # (auto) 6.7 10 ^3/uL (1.6-8.6); Platelet Count (auto) 337 10^3/uL (140-450); Red Blood Cells 4.49 10^6/uL (4.0-5.20); Red Cell Distribution Width 22.9 % (11.8-14.3)
[2024-08-05 14:57] LABS: Albumin 4.2 g/dL (3.2-4.8); Anion Gap 8 (5-15); BUN/Creatinine Ratio 11.5 (10.0-20.0); Calcium 9.5 mg/dL (8.7-10.4); Carbon Dioxide 27 mmol/L (20-31); Chloride 104 mmol/L (98-107); Glucose 98 mg/dL (74-106); Sodium 139 mmol/L (136-145); Total Protein 6.4 g/dL (5.7-8.2)
[2024-08-05 15:18] VITALS: TEMP 98.8
[2024-08-05 15:19] LABS: Alanine Aminotransferase 141 U/L (7-40); Alkaline Phosphatase 216 U/L (46-116); Aspartate Aminotransferase 157 U/L (13-40); Bilirubin, Total 4.4 mg/dL (0.2-1.0); Blood Urea Nitrogen 6 mg/dL (9-23); Lipase 80 U/L (12-53); Potassium 3.3 mmol/L (3.5-5.1)
[2024-08-05] MEDS: SODIUM CHLORIDE 0.9% 1,000 ML IV ONE (15:43)
[2024-08-05] MEDS: ONDANSETRON HCL 4 MG/2 ML VIAL IV ONE (15:45)
[2024-08-05] MEDS: PIPERACILLIN-TAZOB 3.375GM 100 ML IV ONE (15:46)
[2024-08-05 15:55] VITALS: PULSE 82; RESP 16; O2SAT 96
[2024-08-05 16:15] VITALS: BP 145/100
[2024-08-05] MEDS: fentaNYL CITRATE 100 MCG/2 ML VL IV ONE (16:15)
--- NOTE | 2024-08-05 17:29 | DVH ---
Report Patient Name: KAYLA ROSALES Patient : 1975 Patient Gender: Female Patient Class: Emergency Patient Location: [facility] Reading Location: [facility] Signed Date: 08/05/2024 Ord. Doc: BING RICHARD DOS: 08/05/2024 Status: Final Procedure: CT CT AB PEL WO CON-NO ORAL OR IV CT abdomen and pelvis without contrast INDICATION: n/v epig/RUQ pain Comparison: 07/12/2024 TECHNIQUE: Serial axial images were performed through the abdomen and pelvis and then reformatted in the sagittal and coronal plane. All CT scans at this medical facility are performed using dose modulation techniques as appropriate to a performed exam including the following: Automated exposure control was utilized; adjustment of the MA and/or KvP according to patient size; and use of iterative reconstruction technique. FINDINGS: Large retrocardiac hiatal hernia containing portion of the stomach. Liver and spleen are normal in size without focal mass. No renal masses, stones or hydronephrosis. No masses or enlargement of the adrenal glands or pancreas. There is sludge in the gallbladder. Common bile duct is enlarged measuring 14 mm in the robert hepatis region No distention of bowel loops to suggest mechanical obstruction of bowel. The appendix is normal in appearance. No free fluid. Within the pelvis, bladder is smooth walled without stones. There is some free fluid present in the left adnexal region. Small left ovarian cyst is present. IMPRESSION: Findings similar to those seen on prior CT. 1. Sludge or small stones in the gallbladder with dilated common bile duct. Recommend either MRCP or nuclear medicine HIDA scan 2. Retrocardiac hiatal hernia. 3. Small amount of free fluid in the left adnexal pelvis probably due to ovarian cyst rupture Computed Tomographic Radiation Dosimetry Report: Total CTDI vol = 20 mGy Total DLP = 1028 mGy-cm Low dose protocols were performed. [facility]
[2024-08-05] MEDS: KETOROLAC TROMETH 30 MG/ML 1ML VIAL IV ONE (18:13)
--- NOTE | 2024-08-06 10:12 | DVH ---
Procedure: NM NM HIDA SCAN Exam Date: 08/05/2024 06:45 PM Clinical History: abd pain Comparison Study: CT dated 08/05/2024 Nuclear Medicine Hepatobiliary Scan. Technique: Following the intravenous administration of 7.5 mCi of technetium 99m labeled Choletec multiple plana r abdominal planar images were obtained in anterior projection in 5 minute intervals for 60 minutes . Right lateral images were obtained at 60 minutes after injection. Findings: The liver appears grossly normal in size. There is no abnormal persistence of the cardiac or blood po ol activity. There is nonvisualization of small bowel and gallbladder. Impression: There is nonvisualization of the gallbladder and small bowel loops suggesting cystic duct obstruction and possible common bile duct obstruction. MRCP and/ or ERCP could be considered to further evaluate if clinically indicated.
== END 2024-08-06 10:29 | disposition left against medical advice (07) ==
LOC: ER 12:39 → EEVIPCON 12:39 → ER 08-06 08:48
DX: K80.50 Calculus of bile duct without cholangitis or cholecystitis without obstruction (principal); E80.6 Other disorders of bilirubin metabolism; R11.2 Nausea with vomiting, unspecified; I10 Essential (primary) hypertension; F17.210 Nicotine dependence, cigarettes, uncomplicated; Z79.899 Other long term (current) drug therapy
CPT/HCPCS: 36415; 74176; 76705; 78226; 80053; 81001; 81025; 83605; 83690; 84484; 85025; 96365; 96375; 99291; A9537; J1885; J2405; J2543; J3010; J7030